=== PATIENT | male | born 1950 | race Two or more races ===

== ENCOUNTER → 2017-06-11 | Outpatient (CLI) | payer MEDICARE ==
[2017-06-11 14:24] LABS: Blood Urea Nitrogen 32 mg/dL (9-20); Non-African American GFR(MDRD) >60 (>60 ml/min/1.73 sqM)
== END | disposition home or self-care (01) ==
LOC: LABWHC1 13:50
PROVIDERS: ATTEND Orthopaedic Surgery Orthopaedic Surgery of the Spine
DX: Z01.818 Encounter for other preprocedural examination (principal); N28.9 Disorder of kidney and ureter, unspecified; M54.5 Low back pain; M51.17 Intervertebral disc disorders with radiculopathy, lumbosacral region; Z48.89 Encounter for other specified surgical aftercare; Z98.1 Arthrodesis status
CPT/HCPCS: 36415; 82565; 84520

== ENCOUNTER → 2017-07-03 | Outpatient (CLI) | payer MEDICARE ==
[2017-07-02 14:48] VITALS: BMI 24.3
[2017-07-03 13:21] VITALS: BP 121/73; PULSE 70; RESP 16
--- NOTE | 2017-07-03 14:18 | P.CONS ---
History of Present Illness - Reason for Consult Consult date: 07/03/17 - History of Present Illness This is 67 years old male who had lumbar fusion surgery in 2012, at L3/L4 5 levels, and he did very well after the surgery, from April 2017, he started feeling severe right lower extremity pain, he had very minimal low back pain but he had severe pain in his right lower extremity radiated towards the medial aspect of his right side and towards the right ankle , he denies any fever or night sweats he denies any change in the bowel movement or urination, and still the pain fluctuates between 01/26-03/28, he tried oral steroids without any benefit Past Medical History Past Medical History: Hypertension, Musculoskeletal Disorder, Osteoarthritis (OA ), Pneumonia Additional Past Medical History / Comment(s): pneumonia, History of Any Multi-Drug Resistant Organisms: None Reported Past Surgical History: Back Surgery Additional Past Surgical History / Comment(s): BACK SURGERY X 2 LOWER BACK 1993 & 2012 fusion, wisdom teeth extraction. Past Anesthesia/Blood Transfusion Reactions: No Reported Reaction Smoking Status: Former smoker - Past Family History Father Family Medical History: Coronary Artery Disease (CAD), Diabetes Mellitus, Hypertension Additional Family Medical History / Comment(s): Father of cardiac dx at age 67 yrs Mother Family Medical History: No Reported History Medications and Allergies Home Medications Medication Instructions Recorded Confirmed Type Aspirin 81 mg PO DAILY 12/30/13 07/02/17 History Lisinopril 40 mg PO DAILY 12/30/13 07/02/17 History Sertraline HCl [Zoloft] 150 mg PO DAILY 12/30/13 07/02/17 History Allergies Allergy/AdvReac Type Severity Reaction Status Date / Time No Known Allergies Allergy Verified 07/02/17 14:42 Physical Exam Vitals: Vital Signs Pulse Resp BP Pulse Ox 07/03/17 13:19 70 16 121/73 97 Social history : not smoker , NO ETOH , NO Illegal drugs Review of Systems : 1- Constitutional : no chills , no fever , no night sweats , 2- Ears : no ear discharge , no change in hearing 3-Nose, Mouth ,Throat ; no bleeding gums, no sore throat , no epistaxis , 4-Cardiovascular : Denies chest pain, , no orthopnea , no palpitation 5-Respiratory : Denies cough , no dyspnea , no hemoptysis 6-Gastrointestinal :, no change in bowel habits , no coffee- ground emesis . 7-Genitourinary : No hematuria , no discharge , no incontinence, 8-Musculoskeletal : No gait dysfunction , report low back pain , 9- Neurological : no ataxia , no tremor , no sezure , 10-Psychatric , no suicidal ideation no hallucination 11- Endocrine : no cold intolerence , no polyuria , no polydypsia , 12-Hematologic : no easy bleeding , no easy brusing , 13-Allergic / immunology : no angioedema , no wheezing ,no allergic rhinitis 14-Integumentary : no brttle nails , no change hair / nails , no foot/leg ulcers . Physical Examinations : 1-Constitutional : Cooperative , not in acute distress . 2-HEENT : nech ; supple , no Lymphadenopathy , no Thyromegaly , :eyes , no icterus, no photophobia . ENT : , normal oropharynx , no Thrush 3- Respiratory : Chest clear to auscultations Bilaterally , no wheezing . 4- Cardiovascular : regular rate and rhythem , S1 , S2 , no S3 , no S4. 5- Gastrointestinal: abdomen soft no tenderness , no organomegally . 6- Genitourinary : Defferred . 7-Integumentary : No cellulitis , no ulcers , normal skin turgor , no cyanotic . 8- neurologic : Cranial nerve II to XII intact , no focal neurological deffecit 9-psychatric : alert , oriented X 3 , appropriate affect , intact judgment and insight . 10-Lymphatic : no Lymphadenopathy. 11- musculoskeltal: Lumber spine moter stegnth lower extremities ,thigh and legs 4/5 Right side , 5/5 Left side deep tendon reflexes : normal Knee Jerk , normal ankle Jerk lumber facet Loading Test negative bilaterally Range of motion of the lumbar spine Flexion 60 degrees, extension 10 degrees strait leg raising test negative bilaterally Fabere test negative bilaterally Results Comments: MRI of the lumbar spine= done 06/13/2017, and one bulging disc and bilateral facet arthropathy/L2-3 bulging disc and severe canal stenosis and bilateral facet arthropathy/L3 4 right neuroforaminal narrowing at L4 5 right neuroforaminal narrowing L5-S1 bulging disc and facet arthropathy, and there is fusion at L3 4 L4 5 Assessment and Plan Assessment: Assessment and plan= lumbar radiculopathy , multilevel lumbar disc protrusion and multilevel lumbar degenerative disc disease, previous lumbar fusion Patient could benefit from a right-sided transforaminal epidural steroid injections at L3-4 /L4 5 procedure risk and benefits and alternatives discussed with the patient , and he agreed with the preceding Time with Patient: Greater than 30
== END ==
LOC: PNWHC3 11:37
PROVIDERS: ATTEND Specialist
DX: M51.16 Intervertebral disc disorders with radiculopathy, lumbar region (principal); I10 Essential (primary) hypertension; F17.200 Nicotine dependence, unspecified, uncomplicated; Z98.1 Arthrodesis status; Z79.891 Long term (current) use of opiate analgesic; Z79.899 Other long term (current) drug therapy; Z79.82 Long term (current) use of aspirin
CPT/HCPCS: 99211

== ENCOUNTER 2017-07-10 06:50 | Day surgery (SDC) | payer MEDICARE ==
[2017-07-08 09:52] VITALS: BMI 24.3
[~2017-07-10 06:50] MED LIST: LACTATED RINGERS 1,000 ML IV SCH
[2017-07-10 07:50] VITALS: RESP 16; TEMP 97.7
[2017-07-10] MEDS ORDERED: LIDOCAINE 1% 20 ML VIAL (10MG/ML) FOR IV START INTRADERMA ONE (07:54)
[2017-07-10] MEDS ORDERED: LACTATED RINGERS 1,000 ML IV ONE ×2 (08:30)
--- NOTE | 2017-07-10 08:30 | P.PCN ---
Date of Procedure: 07/10/17 Preoperative Diagnosis: Right lumbar radiculopathy Right lumbar neural foraminal stenosis Status post 2 lumbar spine surgeries Postoperative Diagnosis: Same as above Procedure(s) Performed: Transforaminal epidural steroid injection at the L4 5 and L5-S1 levels on the right side under fluoroscopic guidance Anesthesia: MAC (Conscious sedation with IV fentanyl and Versed) Surgeon: Husam Madden Pathology: none sent Condition: stable Disposition: PACU Description of Procedure: The patient was seen and identified in the preoperative area. Risks, benefits, complications, and alternatives were discussed with the patient. The patient agreed to proceed with the procedure and signed the consent. IV was started, and vital signs were stable. Patient was taken to the OR and time out was completed. The patient was placed in the prone position on procedure table and a pillow was placed under the abdomen to reduce lumbar lordosis. The lumbosacral area was prepped and draped in the usual sterile fashion. Critical pause was taken. Vital signs were closely monitored during the procedure. Conscious sedation was used during the procedure to decrease patients anxiety. The patient mostly has right leg pain that radiates all the way down to his lateral aspect of the right foot. Was started in the AP view then tilted about 10 cephalad to square off the vertebral bodies of L4 and L5 nerve root was tilted to the right oblique position by about 25. The hardware in the lumbar spine obscured my view but I wasn't able to placed the needle under the pedicle screw and into the L4 5 and L5-S1 foramen using 22-gauge 3-1/2 inch Quincke spinal needles. Injecting Omnipaque which showed typical spread of the dye however limited I injected 40 mg of Kenalog +1 mL of Marcaine 0.5% in each level. I recommend that the patient gets caudal epidural steroid injection next time instead of transforaminal because of the extensive hardware in his back. Patient tolerated procedure well, and there were no complaints of paresthesia during the procedure.
[2017-07-10 08:49] VITALS: BP 114/67; PULSE 62
--- NOTE | 2017-07-10 09:13 | FL ---
Fluoroscopy HISTORY: Pain 21 seconds fluoroscopy time supplied to the referring clinician. 2 intraoperative C-arm images docum ent the procedure. See dictated report from anesthesia.
== END 2017-07-10 09:05 | disposition home or self-care (01) ==
LOC: ORPAIN 06:50
PROVIDERS: ATTEND Anesthesiology
DX: M99.73 Connective tissue and disc stenosis of intervertebral foramina of lumbar region (principal); M51.16 Intervertebral disc disorders with radiculopathy, lumbar region; I10 Essential (primary) hypertension; M19.90 Unspecified osteoarthritis, unspecified site; Z79.82 Long term (current) use of aspirin; Z79.899 Other long term (current) drug therapy; Z87.891 Personal history of nicotine dependence; Z98.1 Arthrodesis status; Z82.49 Family history of ischemic heart disease and other diseases of the circulatory system; Z83.3 Family history of diabetes mellitus
CPT/HCPCS: 64483; 64484; J2250; J3301; Q9965; J3010; 99152

== ENCOUNTER 2017-07-30 08:37 | Day surgery (SDC) | payer MEDICARE ==
[2017-07-25 16:22] VITALS: BMI 24.3
[2017-07-30 08:54] VITALS: RESP 18; TEMP 97.1
[2017-07-30] MEDS ORDERED: LACTATED RINGERS 1,000 ML IV ONE ×2 (08:55→10:45)
[2017-07-30] MEDS ORDERED: LIDOCAINE 1% 20 ML VIAL (10MG/ML) FOR IV START INTRADERMA ONE (08:56)
[2017-07-30] MEDS ORDERED: IV FLUID CONTINUATION 1,000 ML IV ONE (09:32)
--- NOTE | 2017-07-30 09:47 | FL ---
EXAMINATION TYPE: FL guided pain mgmt statistic DATE OF EXAM: 07/30/2017 CLINICAL HISTORY: Low Back and sacral pain. TECHNIQUE: Fluoroscopy. COMPARISON: None. FINDINGS: Fluoroscopic guidance was provided during pain relief procedure performed by Dr. Molina. A total of 7 seconds of fluoroscopic time was utilized during the procedure and 3 spot images are acqu ired. Images acquired shows needle localization from posterior inferior approach towards the mid sac rum. IMPRESSION: As Above.
[2017-07-30 09:48] VITALS: BP 122/76; PULSE 63
--- NOTE | 2017-07-30 10:47 | P.PCN ---
Date of Procedure: 07/30/17 Surgeon: Lucian Molina Pathology: none sent Condition: stable Disposition: PACU Description of Procedure: PREOPERATIVE DIAGNOSIS: Lumbar post laminectomy syndrome. POSTOPERATIVE DIAGNOSIS: Lumbar post laminectomy syndrome. PROCEDURE: 1. Caudal epidural steroid injection under fluoroscopic guidance. 2. Caudal epidurogram. ANESTHESIA: Local with 1% lidocaine; IV conscious sedation EBL: None. PROCEDURE INDICATION: This is a patient with postlaminectomy syndrome with uncontrolled pain who presents for caudal MARY today after failure of TFESI at last visit. No use of blood thinners except ASA 81 mg, last used three days ago. PROCEDURE DESCRIPTION: The patient was seen and identified in the preoperative area. Risks, benefits, complications, and alternatives were discussed with the patient including but not limited to bleeding, infection, nerve damage, incomplete pain relief, and allergic reactions to medications. The patient agreed to proceed with the procedure and signed the consent. IV was started, and vital signs were stable. Patient was taken to the OR and time out was completed to verify proper patient , allergies, and laterality of pain. The patient was placed in the prone position on procedure table and a pillow was placed under the abdomen to reduce lumbar lordosis. The lumbosacral area was prepped and draped in the usual sterile fashion. Vital signs were closely monitored during the procedure. Using lateral fluoroscopy the anterior-posterior plates of the sacrum were identified and the skin and deeper tissues corresponding into sacrococcygeal ligament were anesthetized using approximately 3 mL of 1% lidocaine. Then under fluoroscopy, a 3-1/2-inch 20-gauge Tuohy epidural needle/22-guage 3-1/2 inch spinal needle was guided through the sacrococcygeal ligament, and into the epidural space. After negative aspiration, a 1 mL of omnipaque-300 contrast dye was injected with excellent epidurogram. Again after negative aspiration for CSF , blood, and with no paresthesias, a solution containing Decadron 20mg, 2ml of 1 % preservative free lidocaine with 7 ml of preservative free normal saline ( total of 11 ml) solution was injected with washout of epidurogram. Needle was withdrawn intact. Skin was cleansed, and bandage was applied. COMPLICATIONS: None. COMMENTS: DISPOSITION / PLANS: The patient was placed in a supine position and transferred to the recovery area in a stable condition for observation and was discharged from the recovery room after meeting discharge criteria. Home discharge instructions given to the patient by the staff. The patient was reexamined prior to discharge. The patient will schedule a follow up procedure in 4-6 weeks.
== END 2017-07-30 10:01 | disposition home or self-care (01) ==
LOC: ORPAIN 08:37
PROVIDERS: ATTEND Anesthesiology
DX: Z79.82 Long term (current) use of aspirin (principal); Z79.899 Other long term (current) drug therapy; M54.5 Low back pain
CPT/HCPCS: 62323; J2250; J1100; Q9965; J3010

== ENCOUNTER → 2017-09-05 | Outpatient (CLI) | payer MEDICARE ==
[2017-09-05 11:16] LABS: Basophils % (A) 1 %; Eosinophils # (A) 0.1 k/uL (0-0.7); Eosinophils % (A) 4 %; HCT 39.8 % (39.0-53.0); HGB 13.8 gm/dL (13.0-17.5); Lymphocytes # (A) 1.5 k/uL (1.0-4.8); Lymphocytes % (A) 41 %; MCH 33.3 pg (25.0-35.0); MCHC 34.7 g/dL (31.0-37.0); MCV 96.1 fL (80.0-100.0); Mean Platelet Volume 8.1; Monocytes # (A) 0.2 k/uL (0-1.0); Monocytes % (A) 5 %; Neutrophils # (A) 1.7 k/uL (1.3-7.7); Neutrophils % (A) 46 %; Platelet Count 115 k/uL (150-450); RBC 4.15 m/uL (4.30-5.90); RDW 12.6 % (11.5-15.5); WBC 3.6 k/uL (3.8-10.6)
[2017-09-05 11:17] LABS: Appearance,Urine Clear (Clear); Bilirubin,Urine Negative (Negative); Blood,Urine Negative (Negative); Color,Urine Yellow; Glucose,Urine (UA) Negative (Negative); Ketones,Urine Negative (Negative); Leukocyte Esterase,Urine Negative (Negative); Nitrite,Urine Negative (Negative); PH, Urine 5.5 (5.0-8.0); Protein,Urine Trace (Negative); Specific Gravity,Urine 1.019 (1.001-1.035); Urobilinogen,Urine <2.0 mg/dL (<2.0)
[2017-09-05 11:25] LABS: Anion Gap 12 mmol/L; Blood Urea Nitrogen 22 mg/dL (9-20); Calcium 9.1 mg/dL (8.4-10.2); Carbon Dioxide 23 mmol/L (22-30); Chloride 106 mmol/L (98-107); Glucose 91 mg/dL (74-99); Potassium 4.5 mmol/L (3.5-5.1); Sodium 141 mmol/L (137-145)
--- NOTE | 2017-09-05 11:26 | XR ---
EXAMINATION TYPE: XR chest 2V DATE OF EXAM: 09/05/2017 COMPARISON: 08/05/2014 HISTORY: 67-year-old male preoperative exam prior to lumbar fusion TECHNIQUE: Frontal and lateral views FINDINGS: The cardiomediastinal silhouette, aorta, and pulmonary vasculature are within normal limits. Mild hyp erinflation with slight increased retrosternal clear space. Otherwise, lungs and pleural spaces are c lear. IMPRESSION: Query underlying emphysema. No acute cardiopulmonary process.
[2017-09-05 11:35] LABS: Partial Thromboplastin Time 22.4 sec (22.0-30.0); Prothrombin Time 9.6 sec (9.0-12.0)
== END | disposition home or self-care (01) ==
LOC: LABPAT 10:29
PROVIDERS: ATTEND Orthopaedic Surgery Orthopaedic Surgery of the Spine
DX: Z01.818 Encounter for other preprocedural examination (principal); M48.00 Spinal stenosis, site unspecified; Z01.812 Encounter for preprocedural laboratory examination
CPT/HCPCS: 36415; 71046; 80048; 81003; 85025; 85610; 85730; 86850; 86900; 86901; 87070; 93005

== ENCOUNTER 2017-09-11 06:23 | Inpatient (IN) | payer MEDICARE ==
[2017-09-04 14:52] VITALS: BMI 24.3
[~2017-09-11 06:23] MED LIST changes: +BACITRACIN 50,000 UNIT, POLYMYXIN B 500,000 UNIT in SODIUM CHLORIDE 0.9% IRRIGATIO 1,00... IRRIGATION ONE; -LACTATED RINGERS 1,000 ML IV SCH; +ceFAZolin IN SWFI 2 GM/20 ML SYRINGE IVP ONE
[2017-09-11] MEDS: LACTATED RINGERS 1,000 ML IV SCH ×2 (07:00→17:35)
[2017-09-11] MEDS ORDERED: LIDOCAINE 1% 20 ML VIAL (10MG/ML) FOR IV START INTRADERMA ONE (07:07)
[2017-09-11] MEDS ORDERED: ONDANSETRON 4 MG/2 ML VIAL IVP ONE (07:11)
[2017-09-11] MEDS ORDERED: KETAMINE 10 MG/ML 20 ML VIAL ONE (08:42)
[2017-09-11] MEDS ORDERED: LIDOCAINE 1% INJ 10MG/ML (20 ML MDV) ONE (08:42)
[2017-09-11] MEDS ORDERED: ePHEDrine SULFATE/0.9% NACL/PF 50 MG/5 ML SYRINGE IV ONE (08:42)
[2017-09-11] MEDS ORDERED: ROCURONIUM BROMIDE 10 MG/ML 10 ML VIAL IV ONE (08:42)
[2017-09-11] MEDS ORDERED: SODIUM CHLORIDE 0.9% IRRIG 1,000 ML BTL IRRIGATION ONE (08:42)
[2017-09-11] MEDS ORDERED: PHENYLEPHRINE-0.9% NACL SYG 1 MG/10 ML SYRINGE ONE (08:42)
[2017-09-11] MEDS ORDERED: HYDROmorphone (PF) 1 MG/ML ONE (08:42)
[2017-09-11] MEDS ORDERED: HEPARIN SODIUM,PORCINE 10,000 UNIT/ML 1 ML VIAL ONE (08:42)
[2017-09-11] MEDS ORDERED: PROPOFOL 10 MG/ML 20 ML VIAL IV ONE (08:42)
[2017-09-11] MEDS ORDERED: SUCCINYLCHOLINE CHLORIDE 100 MG/5 ML SYR IV ONE (08:42)
[2017-09-11] MEDS ORDERED: FUROSEMIDE 10 MG/ML 2 ML VIAL ONE (08:42)
[2017-09-11] MEDS ORDERED: MIDAZOLAM 2 MG/2 ML VIAL ONE (08:42)
[2017-09-11] MEDS ORDERED: MANNITOL 25% 12.5 GM/50 ML VIAL IV ONE (08:42)
[2017-09-11] MEDS ORDERED: THROMBIN (BOVINE) 5,000 UNIT VIAL TOPICAL ONE (09:00)
[2017-09-11] MEDS ORDERED: LIDOCAINE 0.5% (PF) 5 MG/ML (50 ML SDV) SQ ONE (09:00)
[2017-09-11] MEDS ORDERED: BUPIVACAINE (PF) 0.25% 30 ML VIAL SQ ONE (09:00)
[2017-09-11] MEDS ORDERED: GELATIN SPONGE,ABSORB (LARGE) 1 EACH SPONGE TOPICAL ONE (09:00)
[2017-09-11] MEDS ORDERED: LACTATED RINGERS 1,000 ML IV ONE ×3 (09:33→12:45)
[2017-09-11] MEDS ORDERED: DIAZEPAM 5 MG TAB PO PRN (12:47)
[2017-09-11] MEDS ORDERED: MAGNESIUM HYDROXIDE 2,400 MG/10 ML CUP PO PRN (12:47)
[2017-09-11] MEDS ORDERED: BENZOCAINE/MENTHOL LOZENG 1 EACH LOZENGE MUCOUS MEM PRN (12:47)
[2017-09-11] MEDS ORDERED: HYDROmorphone PCA 5 MG/25 ML SYRINGE IV PRN (12:47)
[2017-09-11] MEDS ORDERED: HYDROmorphone 0.5 MG/0.5 ML SYRINGE IVP PRN (12:47)
[2017-09-11] MEDS ORDERED: ONDANSETRON 4 MG/2 ML VIAL IVP PRN (12:48)
[2017-09-11] MEDS ORDERED: HYDROcodone/APAP 5-325MG 1 EACH TAB PO PRN (12:48)
--- NOTE | 2017-09-11 13:01 | P.OP ---
Date of Procedure: 09/11/17 Preoperative Diagnosis: Spinal stenosis L1-2 L2-3 Facet arthrosis L2-3 and L1-2 Degenerative disc disease L1 to L2 3 Low back pain with lower extremity radiculopathy History of prior decompression and fusion L3 4 L4 5 retained hardware Postoperative Diagnosis: Same Anesthesia: GETA Pathology: none sent Condition: stable Disposition: PACU Description of Procedure: BRIEF OPERATIVE NOTE Preoperative Diagnosis: Spinal stenosis L1-2 and L2-3, facet arthrosis L1-2 L2-3 , degenerative disc disease L1-2 L2-3, low back and lower extremity radiculopathy, history of decompression and fusion L3 4 L4 5 with retained hardware Postoperative Diagnosis: Same Procedure: Removal of deep hardware at L3, L4, L5 Exploration of fusion L3 4 L4 5 with findings of solid fusion Laminectomy and decompression with wide bilateral foraminotomies and partial facetectomy L1-2 L2-3 Posterior lateral decompression and fusion L1-2 L2-3 Transforaminal lumbar interbody fusion for a 360 fusion L2-3 Discectomy for decompression L2-3 Placement of interbody graft L2-3 Local autogenous bone grafting Harvesting of bone marrow aspirate into the pedicles L1 and 2 Use of Cell Saver Use of bone graft extenders Use of neuro monitoring Surgeon: Dr. Washington Sample Hand: Yash Vieyra is present throughout the entire the case persistence during positioning, dissection, exposure, visualization, and all crucial elements of the case as well as closure. Anesthesia: General anesthesia per Dr. Pond Estimated blood loss: Approximately 350 mL with 126 given back through Cell Saver Complications: None apparent Components implanted: We removed the [employer] Solera screws at L3 4 and 5 as well as the rods and a cross-link there evaluated found to be in total. We placed new K2M [place] pedicle screws measuring 6.5 x 45 mm in length at L12 and 3 with rods and cross-link and 1 [place] interbody titanium cage with osteoamp bone sponge and DBX Bone fibers Disposition: To recovery room in good stable condition. OPERATIVE INDICATIONS The patient has had long-standing issues in their lower back and lower extremities. He had been through surgery in the past at L3 4 and L4 5 and had done quite well with his surgery with his prior fusion. He had done very nicely with his prior fusion over the past several years however started developing increasing pain in his back and towards lower extremities. He was evaluated found have significant changes and progressive degeneration at L1-2 and L2-3 with spinal stenosis and degenerative disc disease and facet arthrosis. He has been through extensive conservative treatment for this however has not had any lasting benefit despite aggressive conservative treatment The patient has been through conservative treatment. We discussed various treatment options including surgery, and the patient wishes to proceed with surgery We discussed the risk, patient's alternatives and benefits of surgery including but not limited to, risk of bleeding risk of infection, risk of need for further surgery, risk of decreased, loss of motion, muscle function , malunion nonunion, hardware failure, nerve damage, paralysis, heart attack, blindness and . OPERATIVE SUMMARY After discussing all the risks, patient alternatives and benefits at length, the patient elected to proceed with surgical intervention, signed informed consent, and presented for their procedure. The patient was seen and examined in the preoperative holding area and the surgical site was marked. The patient was given antibiotics and brought to the operating room. The patient was sedated and intubated by anesthesia in standard fashion. The patient was positioned on to the operating room table in a prone position on the appropriate frame which was well-padded and well molded. We were careful to pad any bony prominences and pressure points. We were careful to maintain the patient's cervical spine and good neutral alignment and position throughout. The patient was prepped and draped in a normal standard fashion. An appropriate timeout and keystone protocol performed. We were able to proceed with the surgery. The local wound area was infiltrated with local anesthetic. An incision was made at the midline longitudinally over the appropriate levels utilizing the prior incision site and extending cephalad up to L1-2 . Dissection was taken down subcutaneously to the level of the fascia which was split midline. Dissection was taken over the lamina bilaterally over the facet joints and to the transverse processes. I was able to dissect down over the pedicle screws at L3 4 and 5. There is some bone growth over the screws and rods and this was taken down. There is significant bone mass which was bridging over L3 4 and 5. I was able expose the screw head as well as a cross- link in the rods. I was able to remove the cross-link as well as the rods and Screws. I removed the screws and at L3 4 and 5 individually and each screw was found to have good purchase and good stability without evidence of loosening. There were evaluated found in total. I checked the fusion mass was solid across. There is no evidence of any motion with testing at L3 4 L4 5. There is apparent solid fusion from L3 to L5. I dissected further L1 and L2 and expose the pedicles at those levels and the transverse processes. Intraoperative x-ray was taken which showed a marker at the appropriate level with all at L2. With the appropriate level positively confirmed, as well as the hardware removed at L3 4 and 5 we were able to proceed with placement of the pedicle holes and screws at L1 and 2.. The patient had all their twitches back. The wound was copiously irrigated and suctioned dry as had been done periodically throughout the case. Screw holes were established similarly at each level. A sharp awl was used to establish the starting hole. It was palpated and found to have good for yates and good base. A monitored Steffee probe was used to establish the pedicle hole. It was positioned so there was no stimulation at 12 mA. The hole was palpated and found to have good for yates and a good base. The hole was tapped with the appropriate sized tap. The transverse process or sacral ala was decorticated with a high-speed bur. I was able to use these holes to place the appropriate size screw and good alignment and good position with good bony purchase. When the screws were inserted there were stimulated, and found to have no stimulation at 20 mA. I was able to turn my attention to the decompression. decompression was performed with a combination of rongeurs, curettes, Kerrison rongeurs and a ball -tip feeler L1-2 and L2-3. There was severe stenosis L1-2 and L2-3 particular at the neural foramen which was relieved with decompression. All of the bone that was removed was stripped and morcellized for use as autogenous bone graft later in the case. I was able to obtain good central decompression as well as wide bilateral foraminal decompression. There is no evidence of dural tear or leak. Good hemostasis was maintained. The wound was irrigated and suctioned dry. I performed a complete facetectomy at the appropriate level on the most symptomatic side at L23 on the right. All bone that was removed was saved for local autogenous bone grafting. I was able to gain access to the disc space at the appropriate level/levels of L2-3. Good hemostasis was maintained. I was able to protect the neurologic structures. There was significant disc protrusion causing further stenosis and A discectomy was performed. This provided further decompression. I was also able to perform complete discectomy and endplate preparation with a combination of pituitary curettes, rasps and scrapers. With the interbody space prepared, I was able to do appropriate sizing. The appropriate size cage was chosen. The wound was irrigated and suctioned dry. The interbody space was packed with local autogenous bone graft and a small portion of bone graft substitute, as was the cage itself. Protecting the soft tissue structures, I was able place the cage in good alignment and good position with good fit and fill at L2-3. There is no evidence of extrusion of the graft material nor protrusion of the interbody device. The wound was irrigated and suctioned dry. With the hardware intact, intraoperative x-ray was again taken which showed good alignment and position of the hardware at the appropriate levels from L1 to L3 with removed hardware from L3 4 and 5. We were then able to measure, contour and place the rods and appropriate hardware bilaterally. I was able to place capcrews, tighten them down, and torque them off appropriately. With this intact I was able to place the local otitis bone graft with additional bone graft enhancer as necessary into the posterior lateral gutters bilaterally. With the bone graft intact, a stable construct, and good decompression at the appropriate levels, we were able to proceed with closure. Good hemostasis was maintained. There is no evidence of dural tear or leak. The fascia was closed for a watertight closure. The subcutaneous tissue was closed over a superficial drain. The subcuticular tissue was closed with absorbable suture. The wound was cleaned and dried and dressed with the appropriate dressing. The drapes were broken down. The patient was gently rolled back onto their hospital bed being careful to maintain their cervical spine and good neutral alignment and position. They were woken up by anesthesia , extubated, and brought to the recovery room in good stable condition. The patient will be admitted to the hospital for appropriate postoperative care , medical management and monitoring. We will continue to follow them closely about the postoperative course.
[2017-09-11] MEDS: HYDROmorphone 0.5 MG/0.5 ML SYRINGE IVP PRN ×5 (13:58→21:26)
--- NOTE | 2017-09-11 16:13 | XR ---
EXAMINATION TYPE: XR lumbar spine 2 or 3V DATE OF EXAM: 09/11/2017 COMPARISON: 09/11/2017 earlier exam HISTORY: Lumbar surgery TECHNIQUE: 2 view lumbar spine FINDINGS: Pedicle screws been placed at L1-L3. Disc spacer is been placed at L2-3. There may be prior disc space is present L3-4 L4-5. Vertebral body alignment is straightened in this position IMPRESSION: 1. Postsurgical placement of pedicle screws L1-L3.
[2017-09-11] MEDS: SODIUM CHLORIDE 0.9% 1,000 ML IV SCH (16:32)
[2017-09-11] MEDS: ceFAZolin IN SWFI 2 GM/20 ML SYRINGE IVP SCH ×2 (16:35→23:39)
--- NOTE | 2017-09-11 17:14 | XR ---
EXAMINATION TYPE: XR lumbar spine 1V DATE OF EXAM: 09/11/2017 COMPARISON: NONE HISTORY: Needle placement TECHNIQUE: Single lateral lumbar spine FINDINGS: There is a metallic device directed towards the L2 vertebral body. Previous disc spacers at L3-4 and L4-5 are evident. There is loss of disc height L1-L2 3. IMPRESSION: 1. Metallic device directed towards L2 on a crosstable lumbar spine
[2017-09-11] MEDS: HYDROcodone/APAP 5-325MG 1 EACH TAB PO PRN ×2 (19:21→23:38)
--- NOTE | 2017-09-11 20:56 | P.CONS ---
History of Present Illness - Reason for Consult Consult date: 09/11/17 medical management - Chief Complaint elective back surgery - History of Present Illness 67 year old male with past medical history of well controlled hypertension, and Chronic low back pain. Patient presented for elective back surgery, This is a redo surgery for spinal stenosis and degenerative disease. Patient reports debilitating pain that limits his daily activity, along with radiculopathy pain to the right lower leg and weakness at times denies any urinary or bowel incontinence or retention. Patient tolerated procedure well currently denies any chest pain or trouble breathing denies any fevers or chills denies any coughing, he reports that back pain is controlled at this point he still has Baca catheter and He tolerated diet denies any nausea or vomiting . Patient reports that he would like to go home with possible once he recovers. Review of Systems Constitutional: Patient denies fever, denies chills, denies night sweating, denies significant weight changes Eyes: Patient denies visual changes, denies eye pain ENT: Patient denies ear pain, denies rhinorrhea, denies sore throat Cardiovascular: Patient denies chest pain, denies exertional dyspnea, denies peripheral leg edema, denies orthopnea, denies paroxysmal nocturnal dyspnea Respiratory:Patient denies cough, denies wheezing, denies shortness of breath Gastrointestinal: Patient denies diarrhea, denies constipation, denies nausea , denies vomiting, denies abdominal pain Genitourinary: Patient denies dysuria, denies hematuria, denies changes in urinary habits, denies genital lesions Musculoskeletal: Patient denies muscle pain, denies joint pain Psychiatric: Patient denies changes in mood or memory, denies suicidal ideation, denies anxiety Endocrine: Patient denies heat intolerance, denies cold intolerance, denies excessive thirst, denies polyuria Neurological: Patient denies focal neurologic deficits, denies weakness, denies numbness, denies tingling (except for radiculopathy pain in right lower extremity) Hem/Lymphatic: Patient denies bleeding tendency, denies bruising, denies swollen lymph glands Allergic/Immun: Patient denies recent allergic reactions Skin: Patient denies rashes, denies pruritis, denies ulcers Past Medical History Past Medical History: Hypertension, Musculoskeletal Disorder, Osteoarthritis (OA ) Additional Past Medical History / Comment(s): PAIN DOWN LEG History of Any Multi-Drug Resistant Organisms: None Reported Past Surgical History: Back Surgery Additional Past Surgical History / Comment(s): BACK SURGERY X 2 LOWER BACK 1993 & 2012 fusion, EPIDURAL INJECTIONS Past Anesthesia/Blood Transfusion Reactions: No Reported Reaction Smoking Status: Former smoker Past Alcohol Use History: Daily (last drink was 3 days ago) - Past Family History Father Family Medical History: Coronary Artery Disease (CAD), Diabetes Mellitus, Hypertension Additional Family Medical History / Comment(s): Father of cardiac dx at age 67 yrs Mother Family Medical History: No Reported History Medications and Allergies Home Medications Medication Instructions Recorded Confirmed Type Aspirin 81 mg PO DAILY 12/30/13 09/11/17 History Lisinopril 40 mg PO DAILY 12/30/13 09/11/17 History Sertraline HCl [Zoloft] 150 mg PO DAILY 12/30/13 09/11/17 History Naproxen Sodium [Aleve] 220 mg PO BID PRN 09/04/17 09/11/17 History Allergies Allergy/AdvReac Type Severity Reaction Status Date / Time No Known Allergies Allergy Verified 09/11/17 16:27 Physical Exam Vitals: Vital Signs Temp Pulse Resp BP BP Pulse Ox 09/11/17 16:39 74 16 09/11/17 15:00 74 16 100/56 96 09/11/17 14:00 90 18 103/56 97 09/11/17 13:45 96 18 101/59 97 09/11/17 13:30 99 16 108/63 98 09/11/17 13:15 103 H 16 111/68 98 09/11/17 13:00 109 H 16 112/64 98 09/11/17 12:57 98.8 F 114 H 14 108/61 97 09/11/17 07:01 97.1 F L 69 16 140/76 96 Intake and Output 09/11/17 09/11/17 09/11/17 06:59 14:59 22:59 Intake Total 3002 Output Total 2335 70 Balance 667 -70 Intake: IV 3002 Output: Urine 1915 Estimated Blood Loss 420 70 Other: Voiding Method Indwelling Catheter Weight 74.843 kg Patient Weight 09/12/17 06:59 Weight 74.843 kg Constitutional: No acute distress, conversant, pleasant Eyes: Anicteric sclerae, moist conjunctiva, no lid-lag Pupils equal round reactive to light ENMT: NC/AT Oropharynx clear, no erythema, exudates Neck: Supple, FROM, no masses, or JVD No carotid bruits No thyromegaly Lungs: Clear to auscultation Clear to percussion Normal respiratory effort, no accessory muscle use Cardiovascular: Heart regular in rate and rhythm, No murmurs, gallops, or rubs No peripheral edema Abdominal: Soft Nontender, no guarding, rebound or rigidity Abdomen moving with respiration Normoactive bowel sounds No hepatomegaly, No splenomegaly No palpable mass No abdominal wall hernia noted baca cath in place Skin: Normal temperature, tone, texture, turgor No induration No subcutaneous nodules No rash, lesions No ulcers Extremities: No digital cyanosis No clubbing Pedal pulses intact and symmetrical Radial pulses intact and symmetrical No calf tenderness Psychiatric: Alert and oriented to person, place and time Appropriate affect fair judgment Neuro Muscles Strength 4/5 in lower extremities , and 5/5 in upper extremities Sensation to light touch grossly present throughout Cranial nerves II-XII grossly intact No focal sensory deficits Lymphatics: no palpable cervical or supraclavicular , or inguinal lymph nodes could not examined the back due to pain with movement, and patient laying down. Drain is in place Assessment and Plan Assessment: 67 year old male with history of well controlled hypertension, presented for elective back surgery which he tolerated well. (1) Spinal stenosis Narrative/Plan: day zero post surgical intervention orthopedic management drain in place consider removing baca cath tomorrow, monitor urine output and assess PVR pain control PT/OT Current Visit: Yes Status: Chronic Code(s): M48.00 - SPINAL STENOSIS, SITE UNSPECIFIED SNOMED Code(s): 54870487 (2) Hypertension Narrative/Plan: well controlled continue lisinopril Current Visit: Yes Status: Chronic Code(s): I10 - ESSENTIAL (PRIMARY) HYPERTENSION SNOMED Code(s): 86518305 (3) DVT prophylaxis Narrative/Plan: mechanical due to spine surgery Current Visit: Yes Status: Acute Code(s): OSP2888 - SNOMED Code(s): 085456042 (4) Daily consumption of alcohol Narrative/Plan: patient denies any history of withdrawal when he does not drink last drink 3 days ago check CIWA scale during this hospital stay PRN ativan as needed multivitamines Current Visit: Yes Status: Acute Code(s): HUS9617 - SNOMED Code(s): 721502337 Plan: check morning labs continue with incentive spirometry Thank you for allowing us to participate in the care of this patient. I will continue to follow up . Do not hesitate to contact us with questions. Someone can be reached from the [facility] hospitalist group at all hours of the day at [phone].
[2017-09-12] MEDS: HYDROmorphone 0.5 MG/0.5 ML SYRINGE IVP PRN (01:56)
[2017-09-12] MEDS: HYDROcodone/APAP 5-325MG 1 EACH TAB PO PRN ×5 (04:53→22:59)
[2017-09-12] MEDS: SODIUM CHLORIDE 0.9% 1,000 ML IV SCH ×2 (05:54→17:52)
[2017-09-12] MEDS ORDERED: HYDROmorphone 2 MG/ML 1 ML SYRINGE IVP PRN (06:00)
--- NOTE | 2017-09-12 08:43 | P.PN ---
Progress Note - Text Progress Note Date: 09/12/17 Postoperative day #1 Patient is seen and examined today at bedside. The patient has some pain around the surgical site as expected. Pain is being controlled with medication. He has been able to sit up at the side of his bed. His back pain seems appropriately controlled. He is not having any shortness of breath chest pain. His Blank was discontinued this morning. He is tolerating his diet adequately. Physical Exam Afebrile with stable vital signs Abdomen is soft nontender. Chest has good excursion deep and space expiration The incision site is clean dry and intact. No erythema there is no purulence. The drain is intact with small bloody drainage. Extremities have not had neurologic change from prior to surgery. He has sustained dorsal flexion plantar flexion and EHL intact. Calves and thighs were soft nontender without evidence of DVT. Assessment/Plan Postoperative day #1 status post decompression and fusion L1-2 L2-3 with removal of deep hardware at L3 4 and L4 5 for his spinal stenosis with degenerative disc disease and lower extremity radiculopathy Patient is progressing as expected from the surgery. His pain appears to be adequately controlled and his color is good. We will continue with IV pain medications and work on converting over to oral medications. He will get up with therapy today to try to ambulate he would like to get up to a chair which is appropriate. His Blank catheters discontinued this morning and hopefully he should be able to start to void on his own physical course the day. It is likely the patient will be here for another couple of days as he continues to progress with his pain control and mobilization. Once he is comfortable with getting in and out of bed on his own, his pains controlled with oral medications, he is tolerating his diet and using the bathroom appropriately he'll be okay for discharge home as long as his wound appears to be doing well. We will continue to increase the patient's mobilization with therapy. We will continue pain control with oral or IV medications. We'll continue to follow patient closely.
[2017-09-12] MEDS: SENNOSIDES-DOCUSATE SODIUM 1 EACH TAB PO SCH (09:07)
[2017-09-12] MEDS: ASPIRIN 81 MG PO SCH (09:07)
[2017-09-12] MEDS: SERTRALINE 50 MG TAB PO SCH (09:07)
[2017-09-12] MEDS: LISINOPRIL 20 MG TAB PO SCH (09:07)
[2017-09-12 09:19] LABS: Basophils % (A) 0 %; Eosinophils % (A) 1 %; HCT 31.3 % (39.0-53.0); Lymphocytes # (A) 0.9 k/uL (1.0-4.8); Lymphocytes % (A) 15 %; MCH 33.4 pg (25.0-35.0); MCHC 34.3 g/dL (31.0-37.0); MCV 97.4 fL (80.0-100.0); Mean Platelet Volume 7.7; Monocytes # (A) 0.4 k/uL (0-1.0); Monocytes % (A) 6 %; Neutrophils # (A) 4.6 k/uL (1.3-7.7); Neutrophils % (A) 77 %; Platelet Count 157 k/uL (150-450); RBC 3.21 m/uL (4.30-5.90); RDW 13.2 % (11.5-15.5)
[2017-09-12 09:20] LABS: Anion Gap 6 mmol/L; Blood Urea Nitrogen 20 mg/dL (9-20); Calcium 8.1 mg/dL (8.4-10.2); Carbon Dioxide 25 mmol/L (22-30); Chloride 104 mmol/L (98-107); Glucose 124 mg/dL (74-99); Potassium 4.1 mmol/L (3.5-5.1); Sodium 135 mmol/L (137-145)
[2017-09-12 09:24] LABS: HGB 10.7 gm/dL (13.0-17.5)
--- NOTE | 2017-09-12 10:42 | P.PN ---
Subjective Progress Note Date: 09/12/17 Principal diagnosis: Back pain. Patient was having 5/10 back pain when he was sitting on the chair. Baca d/mickey. Objective - Vital Signs Vital signs: Vital Signs Temp 98.0 F 09/12/17 07:00 Pulse 71 09/12/17 07:00 Resp 18 09/12/17 07:00 BP 104/52 09/12/17 07:00 Pulse Ox 95 09/12/17 07:00 Intake & Output 09/11/17 09/12/17 09/12/17 18:59 06:59 18:59 Intake Total 3002 Output Total 2405 1220 Balance 597 -1220 Weight 74.843 kg Intake: IV 3002 Output: Drainage 170 Posterior 170 Urine 1915 1050 Uretheral (Baca) 50 Estimated Blood Loss 490 Other: Voiding Method Indwelling Catheter Indwelling Catheter - Exam Constitutional: No acute distress, conversant, pleasant Eyes: Anicteric sclerae, moist conjunctiva, no lid-lag Pupils equal round reactive to light ENMT: NC/AT Oropharynx clear, no erythema, exudates Neck: Supple, FROM, no masses, or JVD No carotid bruits No thyromegaly Lungs: Clear to auscultation Clear to percussion Normal respiratory effort, no accessory muscle use Cardiovascular: Heart regular in rate and rhythm, No murmurs, gallops, or rubs No peripheral edema Abdominal: Soft Nontender, no guarding, rebound or rigidity Abdomen moving with respiration Normoactive bowel sounds No hepatomegaly, No splenomegaly No palpable mass No abdominal wall hernia noted baca cath in place Skin: Normal temperature, tone, texture, turgor No induration No subcutaneous nodules No rash, lesions No ulcers Extremities: No digital cyanosis No clubbing Pedal pulses intact and symmetrical Radial pulses intact and symmetrical No calf tenderness Psychiatric: Alert and oriented to person, place and time Appropriate affect fair judgment Neuro Muscles Strength 4/5 in lower extremities , and 5/5 in upper extremities Sensation to light touch grossly present throughout Cranial nerves II-XII grossly intact No focal sensory deficits Lymphatics: no palpable cervical or supraclavicular , or inguinal lymph nodes - Labs CBC & Chem 7: 09/12/17 08:31 09/12/17 08:31 Labs: Abnormal Lab Results - Last 24 Hours (Table) 09/12/17 09/12/17 Range/Units 08:31 08:31 RBC 3.21 L (4.30-5.90) m/uL Hgb 10.7 L D (13.0-17.5) gm/dL Hct 31.3 L (39.0-53.0) % Lymphocytes # 0.9 L (1.0-4.8) k/uL Sodium 135 L (137-145) mmol/L Glucose 124 H (74-99) mg/dL Calcium 8.1 L (8.4-10.2) mg/dL Assessment and Plan Plan: (1) Spinal stenosis day 1 post surgical intervention orthopedic management Baca cath removed pain control PT/OT (2) Essential hypertension well controlled continue lisinopril (3) DVT prophylaxis mechanical due to spine surgery Start AC once ok with surgery. (4) Daily consumption of alcohol No signs of withdrawal On CIWA scale during this hospital stay PRN ativan as needed multivitamines
[2017-09-12 19:04] VITALS: RESP 16
[2017-09-13] MEDS: SODIUM CHLORIDE 0.9% 1,000 ML IV SCH (00:32)
[2017-09-13] MEDS: HYDROcodone/APAP 5-325MG 1 EACH TAB PO PRN (04:06)
[2017-09-13 07:46] LABS: Basophils % (A) 0 %; Eosinophils # (A) 0.1 k/uL (0-0.7); Eosinophils % (A) 1 %; Lymphocytes # (A) 0.8 k/uL (1.0-4.8); Lymphocytes % (A) 12 %; MCH 33.5 pg (25.0-35.0); MCHC 33.2 g/dL (31.0-37.0); MCV 100.8 fL (80.0-100.0); Macrocytosis Slight; Mean Platelet Volume 8.5; Monocytes # (A) 0.4 k/uL (0-1.0); Monocytes % (A) 6 %; Neutrophils # (A) 5.4 k/uL (1.3-7.7); Neutrophils % (A) 79 %; Platelet Count 170 k/uL (150-450); RBC 3.27 m/uL (4.30-5.90); RDW 13.6 % (11.5-15.5); WBC 6.8 k/uL (3.8-10.6)
[2017-09-13] MEDS: SERTRALINE 50 MG TAB PO SCH (07:58)
[2017-09-13] MEDS: ASPIRIN 81 MG PO SCH (07:58)
[2017-09-13] MEDS: SENNOSIDES-DOCUSATE SODIUM 1 EACH TAB PO SCH (07:58)
[2017-09-13] MEDS: LISINOPRIL 20 MG TAB PO SCH (07:58)
[2017-09-13 08:01] VITALS: BP 111/69; PULSE 75; TEMP 98
--- NOTE | 2017-09-13 08:52 | P.DS ---
Providers Date of admission: 09/11/17 06:23 Expected date of discharge: 09/13/17 Attending physician: Delores Washington Consults: 09/11/17 12:48 Consult Physician Routine Consulting Provider: Yaneth Felipe Consult Reason/Comments: Medical management Do you want consulting provider notified?: Yes Primary care physician: Gunner Grubbs - Discharge Diagnosis(es) (1) Lumbar spinal stenosis Current Visit: Yes Status: Acute (2) Lumbar facet arthropathy Current Visit: Yes Status: Acute (3) Lumbar degenerative disc disease Current Visit: Yes Status: Acute (4) Low back pain Current Visit: Yes Status: Acute (5) Radiculopathy with lower extremity symptoms Current Visit: Yes Status: Acute (6) History of lumbar spinal fusion Current Visit: Yes Status: Acute Hospital Course: This is a very pleasant 67-year-old male who is well known to our service who presented with L1-2 and L2-3 spinal stenosis, facet arthrosis, and degenerative disc disease, low back pain with lower extremity radiculopathy, and history of previous decompression and fusion at L3-4 and L4-5 with retained hardware who failed outpatient conservative therapy. He was admitted for a posterior lateral decompression and fusion at L1-2 and L2-3 with transforaminal lumbar interbody fusion at L2-3 and removal of hardware and L3-4 and L4-5. The patient tolerated the procedure well and did well postoperatively. He is not currently experiencing significant lumbar pain. He does have some incisional pain that has been controlled with oral medications. He is not currently experiencing any lower extremity radiculopathy bilaterally. He has not had a bowel movement yet but is passing gas and is not experiencing any abdominal distention or discomfort. He states he has ambulated the hallways multiple times this morning and is ready for discharge home. Condition on day of discharge stable. Patient will be discharged home. Patient was cleared preoperatively for surgery by Dr. Grubbs. Patient currently denies any nausea, vomiting, fever, or chills. Patient is eating and voiding freely without difficulty. Patient may shower Tegaderm dressing intact. Patient may remove Tegaderm dressing in 3 days and shower without a dressing at that time. Patient should keep Steri-Strips intact and allow them to fall off naturally. Patient should refrain from driving until at least after their first follow-up appointment in the office. Patient should avoid excessive bending, lifting, and twisting; no lifting greater than 10 pounds. Patient states at the bedside he does not want a prescription for narcotic pain medication for pain control. He will continue to take Tylenol [id number] as prescribed as needed for relief of his symptoms. If the Tylenol is not able to control his symptoms, he will call the office to obtain a different prescription. He will also be given a prescription for Senokot-S 1 tab twice per day as needed for constipation, dispense #60, at discharge. Patient may resume previously prescribed home medications except for Aleve. Patient should discontinue Aleve and avoid anti- inflammatories for the next 6 weeks postoperatively. Physical Exam on day of discharge: Patient is awake, alert, and oriented 3 Vital signs stable Good chest excursion with deep inspiration and expiration Abdomen soft nontender No signs or symptoms of DVT; no calf pain Extensor hallucis longus, plantarflexion, and dorsiflexion positive sustained bilateral lower extremities No significant pain with palpation over the incision site Incision is clean, dry, and intact; no erythema, purulence, or signs of infection Hemovac drain is removed during physical examination; dressing is removed during physical examination and changed Tegaderm dressing and non-stick Telfa intact after replacement Procedures: Posterior lateral decompression and fusion at L1-2 and L2-3 with transforaminal lumbar interbody fusion at L2-3 and removal of hardware and L3-4 and L4-5. Patient Condition at Discharge: Stable Plan - Discharge Summary Discharge Rx Participant: Yes New Discharge Prescriptions: New Sennosides-Docusate Sodium [Senokot-S] 1 tab PO BID PRN #60 tablet PRN Reason: Constipation No Action Lisinopril 40 mg PO DAILY Aspirin 81 mg PO DAILY Sertraline HCl [Zoloft] 150 mg PO DAILY Naproxen Sodium [Aleve] 220 mg PO BID PRN PRN Reason: Pain Discharge Medication List Aspirin 81 mg PO DAILY 12/30/13 [History] Lisinopril 40 mg PO DAILY 12/30/13 [History] Sertraline HCl [Zoloft] 150 mg PO DAILY 12/30/13 [History] Naproxen Sodium [Aleve] 220 mg PO BID PRN 09/04/17 [History] Sennosides-Docusate Sodium [Senokot-S] 1 tab PO BID PRN #60 tablet 09/13/17 [Rx] Follow up Appointment(s)/Referral(s): Yash Lopez, ARNULFO [PHYSICIAN TRAINING OFFICER] - 2 Weeks (Patient may follow-up with Yash Lopez PA-C or Dr. Reji Washington at [facility] in 2-3 weeks following discharge. ) Activity/Diet/Wound Care/Special Instructions: 1. Patient may shower with Tegaderm dressing intact. 2. Patient may remove Tegaderm dressing in 3 days and shower without a dressing at that time. 3. Patient should keep Steri-Strips intact and allow them to fall off naturally. 4. Patient should refrain from driving until at least after their first follow- up appointment in the office. 5. Patient should avoid excessive bending, twisting, and lifting; no lifting greater than 10 pounds 6. Take medications as prescribed 7. Do not soak in tub Discharge Disposition: HOME SELF-CARE
== END 2017-09-13 10:11 | disposition home or self-care (01) | DRG 455 ==
LOC: 2ORMAIN 06:23 → 5MS5E 15:50
PROVIDERS: ADMIT Orthopaedic Surgery Orthopaedic Surgery of the Spine; ATTEND Orthopaedic Surgery Orthopaedic Surgery of the Spine
PROC: 0SG00AJ Fusion of Lumbar Vertebral Joint with Interbody Fusion Device, Posterior Approach, Anterior Column, Open Approach (ICD-10-PCS; 2017-09-11)
PROC: 0SG1071 Fusion of 2 or more Lumbar Vertebral Joints with Autologous Tissue Substitute, Posterior Approach, Posterior Column, Open Approach (ICD-10-PCS; 2017-09-11)
PROC: 0ST20ZZ Resection of Lumbar Vertebral Disc, Open Approach (ICD-10-PCS; 2017-09-11)
PROC: 0SP004Z Removal of Internal Fixation Device from Lumbar Vertebral Joint, Open Approach (ICD-10-PCS; 2017-09-11)
PROC: 07DS3ZZ Extraction of Vertebral Bone Marrow, Percutaneous Approach (ICD-10-PCS; 2017-09-11)
PROC: 4A11X4G Monitoring of Peripheral Nervous Electrical Activity, Intraoperative, External Approach (ICD-10-PCS; 2017-09-11)
PROC: 0SG10AJ Fusion of 2 or more Lumbar Vertebral Joints with Interbody Fusion Device, Posterior Approach, Anterior Column, Open Approach (ICD-10-PCS; principal; 2017-09-11 08:00)
DX: M48.062 Spinal stenosis, lumbar region with neurogenic claudication (principal); F32.9 Major depressive disorder, single episode, unspecified; M47.26 Other spondylosis with radiculopathy, lumbar region; M51.16 Intervertebral disc disorders with radiculopathy, lumbar region; I10 Essential (primary) hypertension; M19.91 Primary osteoarthritis, unspecified site; Z79.82 Long term (current) use of aspirin; Z98.1 Arthrodesis status; Z79.899 Other long term (current) drug therapy; Z87.891 Personal history of nicotine dependence
CPT/HCPCS: 72020; 72100; 80048; 85025; 86850; 86891; 86900; 86901

== ENCOUNTER → 2018-06-19 | Outpatient (CLI) | payer MEDICARE ==
[2018-06-19 12:45] LABS: Basophils % (A) 1 %; Eosinophils # (A) 0.2 k/uL (0-0.7); Eosinophils % (A) 3 %; HCT 44.3 % (39.0-53.0); HGB 14.3 gm/dL (13.0-17.5); Lymphocytes # (A) 1.6 k/uL (1.0-4.8); Lymphocytes % (A) 36 %; MCH 33.3 pg (25.0-35.0); MCHC 32.3 g/dL (31.0-37.0); Macrocytosis Slight; Mean Platelet Volume 7.1; Monocytes # (A) 0.3 k/uL (0-1.0); Monocytes % (A) 7 %; Neutrophils # (A) 2.2 k/uL (1.3-7.7); Neutrophils % (A) 50 %; Platelet Count 180 k/uL (150-450); RDW 13.3 % (11.5-15.5); WBC 4.4 k/uL (3.8-10.6)
[2018-06-19 12:54] LABS: Anion Gap 7 mmol/L; Appearance,Urine Clear (Clear); Bilirubin,Urine Negative (Negative); Blood Urea Nitrogen 26 mg/dL (9-20); Blood,Urine Negative (Negative); Calcium 9.7 mg/dL (8.4-10.2); Carbon Dioxide 25 mmol/L (22-30); Chloride 109 mmol/L (98-107); Color,Urine Yellow; Glucose 100 mg/dL (74-99); Glucose,Urine (UA) Negative (Negative); Ketones,Urine Negative (Negative); Leukocyte Esterase,Urine Negative (Negative); Nitrite,Urine Negative (Negative); PH, Urine 6.5 (5.0-8.0); Potassium 4.9 mmol/L (3.5-5.1); Protein,Urine Negative (Negative); Sodium 141 mmol/L (137-145); Specific Gravity,Urine 1.023 (1.001-1.035)
[2018-06-19 13:09] LABS: Prothrombin Time 9.9 sec (9.0-12.0)
--- NOTE | 2018-06-19 15:06 | XR ---
EXAMINATION TYPE: XR chest 2V DATE OF EXAM: 06/19/2018 COMPARISON: Prior chest x-ray 09/05/2017 HISTORY: Presurgical TECHNIQUE: Frontal and lateral views of the chest are obtained. FINDINGS: There is no focal air space opacity, pleural effusion, or pneumothorax seen. The cardiac silhouette size is within normal limits. There is eventration of the hemidiaphragms. Postop change n oted in lumbar spine. The osseous structures are intact. IMPRESSION: No acute cardiopulmonary process.
== END ==
LOC: LABPAT 11:25
PROVIDERS: ATTEND Orthopaedic Surgery Orthopaedic Surgery of the Spine
DX: Z01.818 Encounter for other preprocedural examination (principal); Z01.812 Encounter for preprocedural laboratory examination; M48.02 Spinal stenosis, cervical region
CPT/HCPCS: 36415; 71046; 80048; 81003; 85025; 85610; 85730

== ENCOUNTER 2018-07-02 05:40 | Inpatient (IN) | payer MEDICARE ==
[2018-06-25 10:46] VITALS: BMI 24.7
[2018-07-02] MEDS ORDERED: DEXAMETHASONE SOD PHOSPHATE 10 MG/ML 1 ML VIAL IV ONE (06:02)
[2018-07-02] MEDS ORDERED: HYDROmorphone 1 MG/ML 1 ML SYRINGE IVP PRN ×2 (06:02→10:18)
[2018-07-02] MEDS ORDERED: LIDOCAINE 1% 20 ML VIAL (10MG/ML) FOR IV START INTRADERMA PRN (06:02)
[2018-07-02] MEDS ORDERED: ONDANSETRON 4 MG/2 ML VIAL IVP ONE (06:02)
[2018-07-02] MEDS ORDERED: MIDAZOLAM 2 MG/2 ML VIAL IV PRN (06:02)
[2018-07-02] MEDS ORDERED: SCOPOLAMINE 1.5MG/72HR PATCH TRANSDERM ONE (06:02)
[2018-07-02] MEDS: LACTATED RINGERS 1,000 ML IV SCH (06:18)
[2018-07-02] MEDS ORDERED: MIDAZOLAM 2 MG/2 ML VIAL ONE (07:30)
[2018-07-02] MEDS ORDERED: SUCCINYLCHOLINE CHLORIDE 100 MG/5 ML SYR IV ONE (07:30)
[2018-07-02] MEDS ORDERED: fentaNYL (PF) 50 MCG/ML 2 ML AMP ONE (07:30)
[2018-07-02] MEDS ORDERED: DEXAMETHASONE SOD PHOS (MDV) 100 MG/10 ML VIAL ONE (07:30)
[2018-07-02] MEDS ORDERED: LIDOCAINE 1% INJ 10MG/ML (20 ML MDV) ONE (07:30)
[2018-07-02] MEDS ORDERED: PROPOFOL 10 MG/ML 20 ML VIAL IV ONE (07:30)
[2018-07-02] MEDS ORDERED: ePHEDrine SULFATE/0.9% NACL/PF 50 MG/5 ML SYRINGE IV ONE (07:30)
[2018-07-02] MEDS ORDERED: PHENYLEPHRINE-0.9% NACL SYG 1 MG/10 ML SYRINGE ONE (07:30)
[2018-07-02] MEDS ORDERED: THROMBIN (BOVINE) 5,000 UNIT VIAL TOPICAL ONE (08:06)
[2018-07-02] MEDS ORDERED: LIDOCAINE 0.5%-EPI 1:200,000 50 ML VIAL SQ ONE (08:06)
[2018-07-02] MEDS ORDERED: GELATIN SPONGE,ABSORB (LARGE) 1 EACH SPONGE TOPICAL ONE (08:06)
--- NOTE | 2018-07-02 08:47 | XR ---
EXAMINATION TYPE: XR cervical spine 1V DATE OF EXAM: 07/02/2018 COMPARISON: NONE HISTORY: Needle placement anterior cervical fusion TECHNIQUE: Single crosstable lateral view cervical spine FINDINGS: There is a metallic device directed towards the C4-5 disc level. Anterior acute by spurring is present C4-5 and 6. Endotracheal tube is present. IMPRESSION: 1. A metallic device directed towards the C4-5 level
--- NOTE | 2018-07-02 10:04 | XR ---
EXAMINATION TYPE: XR cervical spine 1V DATE OF EXAM: 07/02/2018 COMPARISON: 07/02/2018 earlier HISTORY: Anterior cervical fusion TECHNIQUE: Lateral cervical spine FINDINGS: Anterior cervical fusion of C4-C7. The prevertebral space appears normal. Some postsurgical changes p resent. Endotracheal tube is present. IMPRESSION: 1. Status post anterior cervical fusion.
[2018-07-02] MEDS ORDERED: LACTATED RINGERS 1,000 ML IV ONE (10:14)
[2018-07-02] MEDS ORDERED: MAGNESIUM HYDROXIDE 2,400 MG/10 ML CUP PO PRN (10:18)
[2018-07-02] MEDS ORDERED: BENZOCAINE/MENTHOL LOZENG 1 EACH LOZENGE MUCOUS MEM PRN (10:18)
[2018-07-02] MEDS ORDERED: HYDROcodone/APAP 5-325MG 1 EACH TAB PO PRN (10:19)
[2018-07-02] MEDS ORDERED: ONDANSETRON 4 MG/2 ML VIAL IVP PRN (10:19)
[2018-07-02] MEDS ORDERED: ACETAMINOPHEN TAB 325 MG TAB PO PRN (10:19)
[2018-07-02] MEDS ORDERED: traMADol 50 MG TAB PO PRN (10:22)
[2018-07-02] MEDS ORDERED: ACETAMINOPHEN TAB 500 MG TAB PO PRN (10:22)
--- NOTE | 2018-07-02 10:26 | P.OP ---
Date of Procedure: 07/02/18 Preoperative Diagnosis: Cervical stenosis C4 5 C5 6 C6 7, herniated nucleus pulposus C4 5 C5 6 C6 7, upper extremity radiculopathy, neck pain, degenerative disc disease Postoperative Diagnosis: Same Anesthesia: GETA Pathology: none sent Condition: stable Disposition: PACU Description of Procedure: BRIEF OPERATIVE NOTE Preoperative Diagnosis: Postoperative Diagnosis: Procedure: Anterior cervical decompression and fusion Placement of interbody graft Application of anterior cervical plate Surgeon: Dr. Washington Side Seam Machine Operator: Yash BOWERS Anesthesia: General anesthesia Estimated blood loss: Complications: None apparent Components implanted: Disposition: To recovery room in good stable condition. OPERATIVE INDICATIONS The patient has had long-standing issues in their neck and upper extremities. He has been having worsening of his symptoms at his neck and upper extremities which have been significantly impeding his ability do activities that he enjoys and his ability to does perform regular activities through his day. He is not having severe disc degeneration at C4 5 C5 6 C6 7 with large osteophytic spurring and disc herniation causing stenosis at his cervical spine. These findings clearly well with his neck and upper extremity symptoms. He had gone through extensive conservative treatment however was not having any prolonged benefit and was having worsening of his symptoms despite conservative care. The patient has been through conservative treatment. We discussed various treatment options including surgery, and the patient wishes to proceed with surgery We discussed the risk, patient's alternatives and benefits of surgery including but not limited to, risk of bleeding risk of infection, risk of need for further surgery, risk of decreased, loss of motion, muscle function, malunion nonunion, hardware failure, nerve damage, paralysis, heart attack, and . OPERATIVE SUMMARY After discussing all the risks, patient alternatives and benefits at length, the patient elected to proceed with surgical intervention, signed informed consent, and presented for their procedure. The patient was seen and examined in the preoperative holding area and the surgical site was marked. The patient was given antibiotics and brought to the operating room. The patient was positioned on the operating room table in a supine position being careful to pad any bony prominences and pressure points. The patient was sedated and intubated by anesthesia in standard fashion. Once the airway and C- spine were stabilized the patient's arms were padded and tucked at her side, with her shoulders gently taped. The head was placed in a donut pad with the neck in good neutral alignment and position. We were careful to maintain the patient's cervical spine and good neutral alignment and position throughout. The patient was prepped and draped in a normal standard fashion. An appropriate timeout and keystone protocol performed. We were able to proceed with the surgery. The local wound area was infiltrated with local anesthetic. An incision was made transversely approximately 2-1/2 cm over the appropriate levels at C5 6. Dissection was taken down subcutaneously to the level of the platysma which was split in line with its fibers. Dissection was taken with a carotid approach, with the trachea and esophagus medial and the carotid sheath laterally. We dissected down to the anterior surface of the vertebral bodies at C4 5 6 and 7. Note was made a very large extensive anterior cervical osteophytes at C4 5 C5 6 and C6 7 which were eventually removed in the case. Intraoperative x-ray was taken which showed a marker at the appropriate level. With the appropriate level positively confirmed, we were able to proceed with discectomy at the appropriate levels first at C4 5 and then at C5 6 and then at C6 7. All of the operative levels were exposed appropriately. The patient had all their twitches back, and there was no evidence of recurrent laryngeal issue. The wound was copiously irrigated and suctioned dry as had been done periodically throughout the case. At the appropriate level/levels, I established an annulotomy with an 11 blade scalpel. I started at C4 [address] caudal to C5 6 and then C6 7 A discectomy was performed with a combination of pituitary rongeurs, curettes, a high-speed bur, and Kerrison rongeurs. The posterior longitudinal ligament was taken down as were any posterior osteophytes. There were large posterior osteophytes and disc herniation causing stenosis centrally in the bilateral neural foramen worse on the right than the left. These were taken down with the decompression. This gave good central and bilateral foraminal decompression. There is no evidence of any dural tear or leak. The endplates were prepared with a high-speed bur. With the endplates in good parallel position, I was able to size for the appropriate size interbody graft. The wound was irrigated and suctioned dry the graft was prepared and malleted into position. It had good alignment and position with the anterior surface flush with the anterior surface of the vertebral bodies. This was done similarly the appropriate levels at C4 5 6 and 7. With the grafts intact, I was able to measure and contour and appropriate sized plate. The plate was positioned at the midline over the appropriate levels at C4 5 6 and 7. Screw holes were established with a hand drill and drill guide. Screws were placed in good alignment and position with excellent bony purchase. They were seated under the locking device. The construct was checked and found to be stable. Intraoperative x-ray was taken which showed good alignment and position of the implants at the appropriate levels at C4 5 6 and 7. There was no evidence of any dural tear or leak. Good hemostasis was maintained. The wound was copiously irrigated and suctioned dry as had been done periodically throughout the case. The platysma was closed with absorbable suture. The subcutaneous tissue was closed. The subcuticular tissue was closed with absorbable suture. The wound was cleaned and dried and dressed appropriately. A soft cervical collar was placed appropriately. The patient was woken up by anesthesia, extubated, transferred back gently to their hospital bed and brought to the recovery room in good stable condition. The patient will be admitted to the hospital for appropriate postoperative care , medical management and monitoring. We will continue to follow them closely about the postoperative course.
[2018-07-02] MEDS: ceFAZolin IN SWFI 2 GM/20 ML SYRINGE IVP SCH (17:01)
[2018-07-02] MEDS: SODIUM CHLORIDE 0.9% 1,000 ML IV SCH (17:07)
[2018-07-03] MEDS: ceFAZolin IN SWFI 2 GM/20 ML SYRINGE IVP SCH (00:39)
[2018-07-03] MEDS: SODIUM CHLORIDE 0.9% 1,000 ML IV SCH (01:34)
[2018-07-03] MEDS: LACTATED RINGERS 1,000 ML IV SCH (04:22)
[2018-07-03 07:21] VITALS: BP 129/73; PULSE 59; RESP 16; TEMP 98.2
[2018-07-03] MEDS ORDERED: ASPIRIN 81 MG PO SCH (09:00)
[2018-07-03] MEDS ORDERED: SERTRALINE 100 MG TAB PO SCH (09:00)
[2018-07-03] MEDS ORDERED: LISINOPRIL 20 MG TAB PO SCH (09:00)
--- NOTE | 2018-07-03 09:04 | P.DS ---
Providers Date of admission: 07/02/18 05:40 Attending physician: Delores Washington Primary care physician: [facility] Course: The patient presented on the day of admission as per his operative note. He had severe cervical stenosis with disc degeneration and upper extremity flap the and underwent his anterior cervical discectomy decompression and fusion at C4 5 C5 6 and C6 7 as per his operative note. Thus far he is very pleased with his surgery. He feels his arm is doing much better. He has soreness at the base of his neck as expected. His pain was controlled with oral medication. Physical Exam The incision site is clean dry and intact. There is no erythema no drainage. There is no purulence no evidence of infection. His neck is soft and supple. There is no significant swelling. His voice is normal. Abdomen soft and nontender. Chest has good excursion with deep inspiration and expiration. The patient has active and passive range of motion intact at the upper and lower extremities. There is no acute change in neurologic status. He has good strength in his bilateral upper extremities Hospital Course Postoperative day #1 status post anterior cervical decompression with discectomy and fusion C4 5 C5 6 and C6 7 for his severe cervical stenosis with disc degeneration and upper extremity radiculopathy. The patient is doing very well some thus far is happy with his results and his improvement in his upper extremities. The patient has been making good progress postoperatively. He has some pain at the base of his neck as expected with this type of surgery but is tolerating this quite well and is mobile about his room. They have completed the prophylactic antibiotics without any signs or symptoms of infection. The patient has been able to advance their diet, and is tolerating diet adequately. The pain was initially controlled with IV medications and is now controlled appropriately with oral medications. The patient has been able to increase their mobilization. The patient has progressed appropriately. I think they are in good stable condition for discharge today. They will be sent home with appropriate prescriptions. I answered their questions to the best of my ability in a language that they can understand and they are agreeable with the plan. He says he has some pain medicines at home but he hasn't taken them in years but has some available if needed. They will follow up as directed in approximately 2 weeks or sooner if he is having problems. Patient Condition at Discharge: Good Plan - Discharge Summary Discharge Rx Participant: Yes New Discharge Prescriptions: No Action Lisinopril 40 mg PO DAILY Aspirin 81 mg PO DAILY Sertraline HCl [Zoloft] 150 mg PO DAILY Naproxen Sodium [Aleve] 220 mg PO BID PRN PRN Reason: Pain Acetaminophen [Tylenol Extra Strength] 1,000 mg PO DIRECTED PRN PRN Reason: Pain Discharge Medication List Aspirin 81 mg PO DAILY 12/30/13 [History] Lisinopril 40 mg PO DAILY 12/30/13 [History] Sertraline HCl [Zoloft] 150 mg PO DAILY 12/30/13 [History] Naproxen Sodium [Aleve] 220 mg PO BID PRN 09/04/17 [History] Acetaminophen [Tylenol Extra Strength] 1,000 mg PO DIRECTED PRN 06/25/18 [ History] Follow up Appointment(s)/Referral(s): Delores Washington DO [Doctor of Osteopathic Medicine] - 2 Weeks Activity/Diet/Wound Care/Special Instructions: May shower with waterproof Tegaderm intact. On Saturday the patient may shower with area uncovered, but leave Steri-Strips intact and allow them to fray off on their own. Do not soak in a tub. Avoid heavy or rigorous activity. No overhead work. No repetitive bending. May ambulate to tolerance. Light activity only. Discharge Disposition: HOME SELF-CARE
--- NOTE | 2018-07-07 07:14 | CDI ---
Last Revision, July 2017 ocumentation Clarification Form Date: 07/07/18 From: Britney Chew Andree Barry, Circus Artist Hours-8:30 am & 5 pm Melani Admit Date: 07/02/2018 5:40:00 AM Patient Name: Betina Card Visit Number: [id number] Discharge Date: 07/03/18 ATTENTION: The Clinical Documentation Specialists (CDI) and [facility] Coding Staff appreciate your assistance in clarifying documentation. Please respond to the clarification below the line at the bottom and electronically sign. The CDI & [facility] Coding staff will review the response and follow-up if needed. Please note: Queries are made part of the Legal Health Record. If you have any questions, please contact the author of this message via ITS. Delores Seay, DO Documentation in the Operative Report included: anterior cervical discectomy at the appropriate levels first at C4 5 and then C5 6 and then at C6 7 History/Risk factors: HTN, S/P lumbar fusion Postoperative Diagnosis: Cervical stenosis C4 5, C5 6, C6 7; HNP C4 5, C5 6, C6 7; upper extremity radiculopathy, neck pain, DDD Treatment: Anterior cervical decompression and fusion, placement of interbody graft, application of anterior cervical plate In order to capture the discectomy, please specify the following: Partial discectomy Complete discectomy Please continue to document in your progress notes and discharge summary in order to capture severity of illness and risk of mortality. Include clinical findings that support your diagnosis. please note that we performed a complete discectomy at C4 5 C5 6 and C6 7 for his cervical stenosis with disc herniation MTDD
== END 2018-07-03 09:38 | disposition home or self-care (01) | DRG 473 ==
LOC: 2ORMAIN 05:40 → 4SSUR 10:13
PROVIDERS: ADMIT Orthopaedic Surgery Orthopaedic Surgery of the Spine; ATTEND Orthopaedic Surgery Orthopaedic Surgery of the Spine
PROC: 0RT30ZZ Resection of Cervical Vertebral Disc, Open Approach (ICD-10-PCS; 2018-07-02)
PROC: 0RG20A0 Fusion of 2 or more Cervical Vertebral Joints with Interbody Fusion Device, Anterior Approach, Anterior Column, Open Approach (ICD-10-PCS; principal; 2018-07-02 07:30)
DX: M48.02 Spinal stenosis, cervical region (principal); I10 Essential (primary) hypertension; M50.121 Cervical disc disorder at C4-C5 level with radiculopathy; Z79.82 Long term (current) use of aspirin; Z79.899 Other long term (current) drug therapy; Z98.1 Arthrodesis status; Z87.891 Personal history of nicotine dependence; Z82.49 Family history of ischemic heart disease and other diseases of the circulatory system; Z83.3 Family history of diabetes mellitus; Z83.49 Family history of other endocrine, nutritional and metabolic diseases
CPT/HCPCS: 72020; 86850; 86900; 86901

== ENCOUNTER 2019-02-04 10:56 | Emergency (ER) | payer MEDICARE ==
[2019-02-04] MEDS ORDERED: DIPH,PERTUS(ACELL)TETVAC-LF 0.5 ML VIAL IM ONE (11:15)
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
[2019-02-04 12:36] LABS: Basophils % (A) 0 %; Eosinophils # (A) 0.1 k/uL (0-0.7); Eosinophils % (A) 2 %; HCT 39.3 % (39.0-53.0); HGB 13.2 gm/dL (13.0-17.5); Lymphocytes % (A) 21 %; MCH 33.5 pg (25.0-35.0); MCHC 33.4 g/dL (31.0-37.0); MCV 100.2 fL (80.0-100.0); Macrocytosis Slight; Mean Platelet Volume 7.3; Monocytes # (A) 0.3 k/uL (0-1.0); Monocytes % (A) 6 %; Neutrophils # (A) 3.3 k/uL (1.3-7.7); Neutrophils % (A) 69 %; Platelet Count 176 k/uL (150-450); RBC 3.93 m/uL (4.30-5.90); RDW 14.3 % (11.5-15.5); WBC 4.7 k/uL (3.8-10.6)
[2019-02-04 12:42] LABS: INR 0.9 (<1.2); Partial Thromboplastin Time 22.7 sec (22.0-30.0); Prothrombin Time 10.1 sec (9.0-12.0)
[2019-02-04 12:48] LABS: ALT 22 U/L (21-72); AST 32 U/L (17-59); African American GFR (CKD) >90 (>60 ml/min/1.73 sqM); Albumin 4.4 g/dL (3.5-5.0); Alcohol <10 mg/dL; Alkaline Phosphatase 73 U/L (38-126); Anion Gap 7 mmol/L; Blood Urea Nitrogen 27 mg/dL (9-20); Calcium 9.3 mg/dL (8.4-10.2); Carbon Dioxide 23 mmol/L (22-30); Chloride 111 mmol/L (98-107); Glucose 99 mg/dL (74-99); Potassium 4.4 mmol/L (3.5-5.1); Sodium 141 mmol/L (137-145); Total Bilirubin 0.6 mg/dL (0.2-1.3); Total Protein 6.9 g/dL (6.3-8.2)
[2019-02-04 12:58] VITALS: BP 148/95; PULSE 72; RESP 15; TEMP 98.1
[2019-02-04 13:25] LABS: Appearance,Urine Clear (Clear); Bilirubin,Urine Negative (Negative); Blood,Urine Negative (Negative); Color,Urine Yellow; Glucose,Urine (UA) Negative (Negative); Ketones,Urine Negative (Negative); Leukocyte Esterase,Urine Negative (Negative); Nitrite,Urine Negative (Negative); Protein,Urine Trace (Negative); Specific Gravity,Urine 1.025 (1.001-1.035); Urobilinogen,Urine <2.0 mg/dL (<2.0)
[2019-02-04 13:37] LABS: Amphetamine Screen,Urine Not Detected (NotDetected); Benzodiazepines Screen,Urine Not Detected (NotDetected); Cocaine Screen,Urine Not Detected (NotDetected); Opiate Screen,Urine Not Detected (NotDetected); Phencyclidine Screen,Urine Not Detected (NotDetected); Tricyclic Antidepressant,Urine Not Detected (NotDetected); Urn Cannabinoid Scrn Not Detected (NotDetected)
[2019-02-04 13:38] LABS: Barbiturate Screen,Urine Not Detected (NotDetected); Methadone Screen, Urine Not Detected (NotDetected); Oxycodone Screen, Urine Not Detected (NotDetected)
== END 2019-02-04 13:18 | disposition other institution (70) ==
LOC: EC 10:56
DX: S12.01XA Stable burst fracture of first cervical vertebra, initial encounter for closed fracture (principal); S12.110A Anterior displaced Type II dens fracture, initial encounter for closed fracture; S00.03XA Contusion of scalp, initial encounter; Z23 Encounter for immunization; I10 Essential (primary) hypertension; F32.9 Major depressive disorder, single episode, unspecified; Z79.82 Long term (current) use of aspirin; Z79.899 Other long term (current) drug therapy; Z87.891 Personal history of nicotine dependence; Z95.5 Presence of coronary angioplasty implant and graft; Z98.1 Arthrodesis status; V19.9XXA Pedal cyclist (driver) (passenger) injured in unspecified traffic accident, initial encounter; Y93.55 Activity, bike riding; Y92.410 Unspecified street and highway as the place of occurrence of the external cause
CPT/HCPCS: 99291 ×2; 90471 ×2; 36415; 93005; 86900; 86901; 80053; 84484; 85025; 85610; 85730; 86850; 81003; 80306; 72125; 70450; 90715; G0480; 80320

== ENCOUNTER → 2019-02-24 | Outpatient (CLI) | payer MEDICARE ==
--- NOTE | 2019-02-24 15:14 | XR ---
EXAMINATION TYPE: XR cervical spine w flex/ext DATE OF EXAM: 02/24/2019 TECHNIQUE: Frontal, lateral neutral, lateral flexion, lateral extension, and open mouth view of the c ervical spine are obtained. HISTORY: Cervical FX COMPARISON: Cervical spine CT dated 02/04/2019 FINDINGS: There is a nonunited type II dens fracture. No prevertebral soft tissue swelling is seen at this time. Maximum distraction of approximately 8 mm in both flexion and extension as well as a neutral. C1 know n burst fracture is also partially visualized. Posterior arch fractures seen without visualization of the anterior arch fracture. Anterior cervical fusion is seen of C4-C7. Alignment is maintained with straightening of the usual cervical lordosis. Lateral masses are aligned with C2. IMPRESSION: Partial visualization of the known unstable C1 burst fracture and unstable type II dens f racture. Distraction of the dens fracture is unchanged in lateral, flexion, and extension. No prevert ebral soft tissues along at this time.
== END | disposition home or self-care (01) ==
LOC: RADXRMAIN 13:20
PROVIDERS: ATTEND Neurological Surgery
DX: S12.01XD Stable burst fracture of first cervical vertebra, subsequent encounter for fracture with routine healing (principal)
CPT/HCPCS: 72052

== ENCOUNTER → 2019-03-26 | Outpatient (CLI) | payer MEDICARE ==
--- NOTE | 2019-03-26 08:27 | CT ---
EXAMINATION TYPE: CT cervical spine wo con DATE OF EXAM: 03/26/2019 COMPARISON: HISTORY: Folllow up to C1 and C2 fx post fall CT DLP: 369 mGycm Automated exposure control for dose reduction was used. TECHNIQUE: CT scan of the cervical spine is obtained without contrast, axial images are obtained, sa gittal and coronal reformatted images are also reviewed. FINDINGS: There is a C1 burst fracture with fracture through the anterior arch and also the base of the posteri or arches on both sides just behind the transverse processes for the foramen transversarium. Addition al type II dens fracture with minimal 2 mm of displacement. Status post C4-C7 ACDF. Alignment is main tained. Hypertrophic facet arthropathy lower cervical spine. No additional acute fracture identified. Sagittal and coronal reformatted images confirm above findings. Fracture involving the posterior kinza ments of C1 also noted. Alignment is stable. Assessment spinal canal is nondiagnostic due to resolution artifact. Multilevel facet arthropathy and posterior spondylosis results in multilevel foraminal encroachment and suspected canal stenosis. Thi s includes levels C3-T1. Severe right-sided foraminal encroachment on the left at C3-C4. There is a s oft tissue lipoma posterior to the C5 level within the posterior soft tissues on the right measuring 2.5 cm. Subpleural nodule right upper lobe posteriorly likely inflammatory measuring 4 mm. IMPRESSION: 1. Fracture involving C1-C2 is stable in alignment with involvement of the anterior arch of C1 and po sterior elements bilaterally at C1 and should be correlated for stability. Dense fracture appears sta ble in displacement. Overall alignment is similar to the prior exam. 2. Postsurgical changes. 3. Multilevel facet arthropathy and posterior spondylosis result in multilevel foraminal encroachment . Canal stenosis suspected at multiple levels.
== END ==
LOC: RADCTMAIN 07:32
PROVIDERS: ATTEND Neurological Surgery
DX: S12.191A Other nondisplaced fracture of second cervical vertebra, initial encounter for closed fracture (principal); M46.92 Unspecified inflammatory spondylopathy, cervical region; M47.812 Spondylosis without myelopathy or radiculopathy, cervical region; Z98.890 Other specified postprocedural states
CPT/HCPCS: 72125

== ENCOUNTER → 2019-09-23 | Outpatient (CLI) | payer MEDICARE ==
--- NOTE | 2019-09-23 11:52 | XR ---
EXAMINATION TYPE: XR cervical spine comp DATE OF EXAM: 09/23/2019 TECHNIQUE: Frontal, lateral, oblique, swimmers, and open mouth view of the cervical spine are obtaine d. HISTORY: Compression FX of Cervical Vertebra . History of C1 and C2 cervical fixation. COMPARISON: 02/24/2019a FINDINGS: There is posterior cervical fusion of C1-C2 and anterior cervical fusion of C4-C7. There is minimal retrolisthesis of C5 on C6 and C6 on C7 although surgically fixated. Prevertebral soft tissu es are within normal limits. Cervical spine vertebral bodies maintain normal vertebral body heights. The prior fracture site of the posterior elements of C1 appears corticated and united. No acute fract ure is seen. IMPRESSION: 1. Partially visualized prior fracture of C1 appears corticated in the interim and united. Postsurgic al fixation of C1-C2 with appropriate alignment. 2. Anterior surgical fusion of C4-C7 with minimal retrolisthesis of C5 on C6 and C6 on C7.
--- NOTE | 2019-09-23 12:06 | CT ---
EXAMINATION TYPE: CT cervical spine wo con DATE OF EXAM: 09/23/2019 COMPARISON: March 26, 2019 HISTORY: Compression fracture of cervical vertebra. Recent C1-C2 fusion. CT DLP: [address] of the cervical spine was performed with bone and soft tissue window settings submitted . Coronal and sagittal reconstruction is obtained. Interval fixation of previously noted C1 burst fracture with pedicular screws in place. Partial nonun ion anterior arch fracture component. Solid union noted of posterior arch component fractures. C2 ped icular screws also in place. Type II dens fracture demonstrates nonunion. There is change of anterior cervical discectomy and fusion with anterior fixation plate and intervert ebral spacer is noted extending from C4 through C7. There is stable alignment noted. Posterior hypert rophic change noted at each level resulting in bilateral neural foraminal encroachment and mild ventr al thecal sac effacement. Central stenosis suggested at C5-6 and C6-7. IMPRESSION: 1. Postoperative fixation as noted of C1 and C2 partial nonunion and nonunion of fracture components as discussed. 2. Extensive changes of ACDF with posterior ridging and a central stenosis as discussed above.
== END | disposition home or self-care (01) ==
LOC: RADCTMAIN 11:04
PROVIDERS: ATTEND Neurological Surgery
DX: M48.02 Spinal stenosis, cervical region (principal); M43.12 Spondylolisthesis, cervical region; S12.000A Unspecified displaced fracture of first cervical vertebra, initial encounter for closed fracture; Z98.1 Arthrodesis status
CPT/HCPCS: 72050; 72125

== ENCOUNTER → 2020-01-26 | Outpatient (CLI) | payer MEDICARE ==
[2020-01-26 10:30] LABS: Basophils % (A) 1 %; Eosinophils # (A) 0.1 k/uL (0-0.7); Eosinophils % (A) 3 %; HCT 40.8 % (39.0-53.0); HGB 13.5 gm/dL (13.0-17.5); Lymphocytes # (A) 1.4 k/uL (1.0-4.8); Lymphocytes % (A) 37 %; MCH 33.9 pg (25.0-35.0); MCV 102.8 fL (80.0-100.0); Macrocytosis Slight; Mean Platelet Volume 7.7; Monocytes # (A) 0.2 k/uL (0-1.0); Monocytes % (A) 6 %; Neutrophils # (A) 1.9 k/uL (1.3-7.7); Neutrophils % (A) 50 %; Platelet Count 156 k/uL (150-450); RBC 3.97 m/uL (4.30-5.90); RDW 13.2 % (11.5-15.5); WBC 3.8 k/uL (3.8-10.6)
[2020-01-26 17:20] LABS: ALT 25 U/L (10-49); AST 34 U/L (14-35); African American GFR (CKD) 87.4 (60.0-200.0); Albumin/Globulin Ratio 2.37 (1.60-3.17); Alkaline Phosphatase 72 U/L (41-126); Calcium 9.4 mg/dL (8.7-10.3); Chloride 110 mmol/L (96-109); Chol/HDL Ratio 1.75; Cholesterol 192 mg/dL (0-200); Globulin 1.9 g/dL (1.6-3.3); Glucose 89 mg/dL (70-110); Non-African American GFR(CKD) 75.4 (60.0-200.0); Potassium 5.2 mmol/L (3.5-5.5); Sodium 142 mmol/L (135-145); Total Bilirubin 0.5 mg/dL (0.2-1.2); Total Protein 6.4 g/dL (6.2-8.2); Triglycerides <50.0 mg/dL (0.0-149.0)
== END | disposition home or self-care (01) ==
LOC: LABWHC1 08:47
PROVIDERS: ATTEND Internal Medicine
DX: I10 Essential (primary) hypertension (principal); E78.2 Mixed hyperlipidemia; Z12.5 Encounter for screening for malignant neoplasm of prostate; E55.9 Vitamin D deficiency, unspecified
CPT/HCPCS: 80061; 80053; 85025; 82306; 36415; G0103

== ENCOUNTER → 2020-02-19 | Outpatient (CLI) | payer MEDICARE ==
--- NOTE | 2020-02-19 07:59 | XR ---
Cervical spine HISTORY: Neck fracture, fusion 6 views of the cervical spine correlated to prior exam 09/23/2019 The postop changes seen on previous exam are again noted and are stable. Cervical vertebral bodies sh ow stable alignment, height, bone mineralization. Type II dens fracture does not appear fused on plai n film, there is stable alignment on flexion and extension views however. IMPRESSION: Essentially stable postop changes.
--- NOTE | 2020-02-19 08:21 | CT ---
EXAMINATION TYPE: CT cervical spine wo con DATE OF EXAM: 02/19/2020 COMPARISON: 09/23/2019 HISTORY: 69-year-old male S12.9XXD, Follow up to fx and fusion of C1 and C2, subsequent TECHNIQUE: Contiguous axial scanning of the cervical spine without IV contrast. Coronal and sagittal reconstructions performed. CT DLP: 455.9 mGycm Automated exposure control for dose reduction was used. FINDINGS: No craniocervical junction abnormality or prevertebral soft tissue swelling. Redemonstrated C1-C2 posterior cervical fusion. Thin fracture lucency remains apparent with areas of bony bridging especially posteriorly as well as some consolidation of bone graft material along the l eft lateral mass. There has also been some bony bridging across the anterior arch of C1 and dens. Additional post surgical changes of C4-C7 ACDF. Some residual posterior osteophytic ridging at C5-C6 may contribute to mild spinal canal narrowing at this level. There is bony fusion across the left C1-C4 facet joints. On the right, there is bony fusion across the right C4-C5 facet joint. Grade 1 anterolisthesis at T1-T2 and T2-T3. IMPRESSION: 1. REDEMONSTRATED C1-C2 POSTERIOR CERVICAL FUSION HARDWARE. A THIN FRACTURE LUCENCY REMAINS APPARENT AT THE BASE OF DENS FRACTURE SITE WITH AREAS OF BONY BRIDGING ESPECIALLY ALONG THE POSTERIOR MARGIN O F THE FRACTURE. ALIGNMENT IS UNCHANGED. ADDITIONAL CONSOLIDATION OF BONE GRAFT MATERIAL ALONG THE LEF T SIDED FACET JOINT AND SOME INTERVAL BONY BRIDGING ACROSS THE ANTERIOR ARCH OF C1 AND THE ODONTOID P ROCESS. 2. PROGRESSIVE BONY ANKYLOSIS ALONG THE LEFT C1-C4 FACET JOINTS. ON THE RIGHT, THERE IS SIMILAR BONY FUSION AT THE C4-C5 FACET JOINT. 3. GRADE 1 ANTEROLISTHESIS AT T1-T2 AND T2-T3.
== END | disposition home or self-care (01) ==
LOC: RADCTMAIN 06:56
PROVIDERS: ATTEND Neurological Surgery
DX: M43.22 Fusion of spine, cervical region (principal); S12.9XXD Fracture of neck, unspecified, subsequent encounter; Z98.1 Arthrodesis status; M43.14 Spondylolisthesis, thoracic region
CPT/HCPCS: 72050; 72125

== ENCOUNTER 2023-08-02 12:41 | Day surgery (SDC) | payer MEDICARE ==
[2023-07-30 15:41] VITALS: BMI 24.3
[~2023-08-02 12:41] MED LIST changes: -BACITRACIN 50,000 UNIT, POLYMYXIN B 500,000 UNIT in SODIUM CHLORIDE 0.9% IRRIGATIO 1,00... IRRIGATION ONE; +LACTATED RINGERS 1,000 ML IV SCH; +LIDOCAINE 1% (10MG/ML) FOR IV START INTRADERMA PRN; -ceFAZolin IN SWFI 2 GM/20 ML SYRINGE IVP ONE
[2023-08-02 13:34] VITALS: TEMP 97.3
[2023-08-02] MEDS ORDERED: PROPOFOL 10 MG/ML 20 ML VIAL IV ONE (14:08)
--- NOTE | 2023-08-02 14:28 | P.PCN ---
Date of Procedure: 08/02/23 Procedure(s) Performed: BRIEF HISTORY: Patient is a 73-year-old pleasant white male scheduled for an elective colonoscopy as a part of screening for colon cancer. Last Colonoscopy was 10 years ago. PROCEDURE PERFORMED: Colonoscopy snare polypectomy. PREOPERATIVE DIAGNOSIS: Screening for colon cancer. IV sedation per Anesthesia. PROCEDURE: After informed consent was obtained, the patient, was brought into the endoscopy unit. IV sedation was administered by Anesthesia under continuous monitoring. Digital rectal examination was normal. Initially the Olympus CF-160 flexible video colonoscope was then inserted in the rectum, gradually advanced into the cecum without any difficulty. Careful examination was performed as the scope was gradually being withdrawn. Ileocecal valve and the appendiceal orifice were visualized and appeared normal. Prep was excellent. Mucosa of the cecum, had 2 polyps measuring 5 limited and 1 cm in size both of which were removed by snare polypectomy. In the ascending colon there was a 5 limited, 7 mm and 1 cm polyp removed by snare polypectomy. In the transverse colon there was a 6 mm and 1 cm polyp removed by snare polypectomy. Rest of the ascending colon, transverse colon, descending colon, sigmoid colon, and rectum appeared normal. Retroflexion was performed in the rectum and no lesions were seen. The patient tolerated the procedure well. IMPRESSION: 5 mm and 1 cm flat cecal polyp status post polypectomy 5 mm, 7 mm and 1 cm polyp in the ascending colon status post snare polypectomy 6 mm and 1 cm transverse colon polyp status post polypectomy RECOMMENDATIONS: Findings of this examination were discussed with the patient as well as his family.. He was advised to follow with the biopsy results. If the biopsy reveals adenoma he can have a repeat colonoscopy in 3 years
[2023-08-02 15:13] VITALS: BP 122/85; PULSE 57; RESP 16
== END 2023-08-02 15:28 | disposition home or self-care (01) ==
LOC: ORWHC2ENDO 12:41
PROVIDERS: ATTEND Internal Medicine Gastroenterology
DX: Z12.11 Encounter for screening for malignant neoplasm of colon (principal); D12.0 Benign neoplasm of cecum; D12.2 Benign neoplasm of ascending colon; D12.3 Benign neoplasm of transverse colon; I10 Essential (primary) hypertension; M19.90 Unspecified osteoarthritis, unspecified site; F32.A Depression, unspecified; Z79.899 Other long term (current) drug therapy
CPT/HCPCS: 45385; 88305; J2704

== ENCOUNTER 2024-07-17 16:11 | Emergency (ER) | payer MEDICARE ==
[2024-07-17 17:00] VITALS: RESP 18; TEMP 98.3
--- NOTE | 2024-07-17 17:12 | ED ---
General Adult HPI - General Chief complaint: Trauma Stated complaint: L Hand Injury Time Seen by Provider: 07/17/24 17:04 Source: patient Mode of arrival: ambulatory Limitations: no limitations - History of Present Illness Initial comments: Dictation was produced using [employer] dictation software. please excuse any grammatical, word or spelling errors. Chief Complaint: 74-year-old male with fingertip injury from tablesaw History of Present Illness: Patient is 74-year-old male he was working on some [employer] arm and pieces. He was using his table saw when the wood kicked back at him and struck his fingers. Patient states his last tetanus was updated 5 years ago. Does not take any anticoagulation medications. The ROS documented in this emergency department record has been reviewed and confirmed by me. Those systems with pertinent positive or negative responses have been documented in the HPI. All other systems are other negative and/or noncontributory. - Related Data Home Medications Medication Instructions Recorded Confirmed Sertraline HCl [Zoloft] 150 mg PO DAILY 12/30/13 07/30/23 lisinopriL 40 mg PO DAILY 12/30/13 07/30/23 Ezetimibe [Zetia] 10 mg PO DAILY 07/30/23 07/30/23 amLODIPine [Norvasc] 10 mg PO DAILY 07/30/23 07/30/23 Previous Rx's Medication Instructions Recorded Cephalexin [Keflex] 500 mg PO Q6HR 5 Days #20 cap 07/17/24 Allergies Allergy/AdvReac Type Severity Reaction Status Date / Time No Known Allergies Allergy Verified 07/17/24 16:57 Review of Systems ROS Statement: Those systems with pertinent positive or pertinent negative responses have been documented in the HPI. ROS Other: All systems not noted in ROS Statement are negative. Past Medical History Past Medical History: Hypertension, Musculoskeletal Disorder, Osteoarthritis (OA) Additional Past Medical History / Comment(s): , STATES HX OF ANEMIA AFTER SPINAL FUSIONS . HX FX C1-C2 01/2019 History of Any Multi-Drug Resistant Organisms: None Reported Past Surgical History: Back Surgery, Heart Catheterization, Orthopedic Surgery Additional Past Surgical History / Comment(s): LAMINECTOMY (1993) & FUSIONS IN 2013 & 2018., EPIDURAL INJECTIONS.,. HEART CATH ? 2012. CERVICAL FUSION 2019. COLONOSCOPY, BILAT CATARACTS REMOVED WITH LENS IMPLANTS Past Anesthesia/Blood Transfusion Reactions: No Reported Reaction Past Psychological History: Depression Smoking Status: Former smoker Past Alcohol Use History: Daily Past Drug Use History: None Reported - Past Family History Father Additional Family Medical History / Comment(s): Father of cardiac dx at age 67 yrs Mother Family Medical History: No Reported History General Exam - General Exam Comments Initial Comments: General: Well-appearing, nontoxic, no acute distress. Head: Normocephalic, atraumatic Eyes: PERRLA, EOMI ENT: Airway patent Chest: Nonlabored breathing Skin: No visual rash, normal skin tone Neuro: Alert and oriented 3 Musculoskeletal: No gross abnormalities Right hand: Fingertip laceration with partial amputation of the tip of the right third digit. There also appears to be a laceration to the tip of the left fourth digit without significant amputation Limitations: no limitations Course Vital Signs 07/17/24 16:58 Temperature 98.3 F Pulse Rate 64 Respiratory 18 Rate Blood Pressure 135/73 O2 Sat by Pulse 98 Oximetry Procedures - Laceration Laceration #1 Consent Obtained: verbal consent Indication: laceration Site: other Size (cm): 5 Description: linear (complex laceration involving nail bed of 2nd and 3rd digit R hand) Anesthetic Used: lidocaine 1% Anesthesia Technique: nerve block Amount (mls): 3 Pre-repair: wound explored, irrigated extensively Type of Sutures: nylon Size of Sutures: 4-0 Technique: simple, interrupted Patient Tolerated Procedure: well Medical Decision Making - Medical Decision Making Was pt. sent in by a medical professional or institution ([facility], CELLULAR EQUIPMENT REPAIRER, urgent care, hospital, or residential...) When possible be specific @ -No Did you speak to anyone other than the patient for history (EMS, parent, family, police, friend...)? What history was obtained from this source @ -No Did you review nursing and triage notes (agree or disagree)? Why? @ -I reviewed and agree with nursing and triage notes Were old charts reviewed (outside hosp., previous admission, EMS record, old EKG, old radiological studies, urgent care reports/EKG's, residential records)? Report findings @ -No old charts were reviewed Differential Diagnosis (chest pain, altered mental status, abdominal pain women, abdominal pain men, vaginal bleeding, musculoskeletal, weakness, fever, dyspnea, syncope, headache, dizziness, GI bleed, back pain, seizure, CVA, palpatations, mental health)? @ -Finger fracture, finger laceration, finger contusion EKG interpreted by me (3pts min.). @ -None done X-rays interpreted by me (1pt min.). @ -Hide x-ray shows soft tissue defect with partial fracture of the distal alfredo CT interpreted by me (1pt min.). @ -None done U/S interpreted by me (1pt. min.). @ -None done What testing was considered but not performed or refused? (CT, X-rays, U/S, labs)? Why? @ -None What meds were considered but not given or refused? Why? @ -None Was smoking cessation discussed for >3mins.? @ -No Were there social determinants of health that impacted care today? How? (Homelessness, low income, unemployed, alcoholism, drug addiction, transportation, low edu. Level, literacy, decrease access to med. care, group home, rehab)? @ -No Was there de-escalation of care discussed even if they declined (Discuss DNR or withdrawal of care, Hospice)? DNR status @ -No What co-morbidities impacted this encounter? (DM, HTN, Smoking, COPD, CAD, Cancer, CVA, ARF, Chemo, Hep., AIDS, mental health diagnosis, sleep apnea, morbid obesity)? @ -None Was patient admitted / discharged? Hospital course, mention meds given and route, prescriptions, significant lab abnormalities, going to OR and other pertinent info. @ -74-year-old male presents to the emergency department with right second and third digit injury after tablesaw accident. Vital signs stable. Laceration involving the second and third digit involving the nailbed on both sides. There is appear to be a small distal amputation to the second digit. Laceration was repaired as much as possible. Patient given Keflex his tetanus is up-to-date. Will be discharged with prescription for antibiotics and hand specialist follow- up. Did you discuss the management of the patient with other professionals (professionals i.e. , PA, CELLULAR EQUIPMENT REPAIRER, lab, RT, psych nurse, medical social worker, plant pathologist, teacher, privacy officer, case sealer)? Give summary @ -No Was critical care preformed (if so, how long)? @ -No Undiagnosed new problem with uncertain prognosis? @ -No Drug Therapy requiring intensive monitoring for toxicity (Heparin, Nitro, Insulin, Cardizem)? @ -No Were any procedures done? @ -Yes, see above Diagnosis/symptom? Acute, or Chronic, or Acute on Chronic? Uncomplicated (without systemic symptoms) or Complicated (systemic symptoms)? @ -Finger laceration with partial amputation Side effects of treatment? @ -No Exacerbation, Progression, or Severe Exacerbation? @ -No Poses a threat to life or bodily function? How? (Chest pain, [place], [place], pneumonia, PE, COPD, DKA, ARF, appy, cholecystitis, CVA, Diverticulitis, Homicidal, Suicidal, threat to staff... and all critical care pts) @ -yes Disposition Clinical Impression: Finger laceration, Amputation finger Disposition: HOME SELF-CARE Condition: Fair Instructions (If sedation given, give patient instructions): Finger Amputation (ED) Prescriptions: Cephalexin [Keflex] 500 mg PO Q6HR 5 Days #20 cap Is patient prescribed a controlled substance at d/c from ED?: No Referrals: Sofía Hassan DO [Doctor of Osteopathic Medicine] - 1-2 days Derrick Jason MD [STAFF PHYSICIAN] - 1-2 days Time of Disposition: 19:40
[2024-07-17] MEDS: LIDOCAINE 1% INJ 10MG/ML (20 ML MDV) SQ ONE (17:40)
--- NOTE | 2024-07-17 17:47 | XR ---
EXAMINATION TYPE: XR hand complete LT DATE OF EXAM: 07/17/2024 5:34 PM COMPARISON: None CLINICAL INDICATION: Male, 74 years old with history of finger vs. table saw; [facility] TECHNIQUE: XR hand complete LT 3 views were obtained. FINDINGS/IMPRESSION: Soft tissue injury to the second and third digits distally with partial amputation/fracture of the di stal alfredo. Calcific density thought to be bony fragments no radiopaque foreign body. [facility], , 07/17/2024 5:45 PM
[2024-07-17 19:58] VITALS: BP 131/90; PULSE 61
== END 2024-07-17 19:58 | disposition home or self-care (01) ==
LOC: EC 16:11
DX: S61.212A Laceration without foreign body of right middle finger without damage to nail, initial encounter (principal); S61.210A Laceration without foreign body of right index finger without damage to nail, initial encounter; S61.215A Laceration without foreign body of left ring finger without damage to nail, initial encounter; Z87.891 Personal history of nicotine dependence; W31.2XXA Contact with powered woodworking and forming machines, initial encounter; Y99.0 Civilian activity done for income or pay
CPT/HCPCS: 73130; 12002; 99283; J2003